=== PATIENT | female | born 1950 | race African-American/Black ===

== ENCOUNTER 2017-03-20 13:16 | Emergency (ER) | payer MEDICARE ==
[~2017-03-20] VITALS: Ht 160 cm; Wt 91.8 kg
[2017-03-20 13:16] VITALS: TEMP 97.8
[~2017-03-20 13:16] MED LIST: ADVAIR 100/28 DISKUS IH; ASPIRIN E.C. 8181 MG PO; CALAN SR240 MG PO; CALCIUM CARBON500 M1 PO; CARISOPRODOL350 MG PO; CIPRO 500MG TA500 MG PO; COLACE 100100 MG/CAP PO; COREG12.5 MG PO; EXCEDRIN MIGRAI1 TAB PO; EXCEDRIN TENSIO1 CAP PO; FORTAMET1000 MG PO; GLUCOTROL XL5 MG/TAB PO; HYDROXYZINE HCL25 MG PO; IBU800 M1 PO; INDOCIN50 MG PO; K-DUR 2020 MEQ PO; KLOR-CON 1010 MEQ PO; LASIX 40MG TABL40 MG PO; LEVEMIR100 U/ML SC; LISINOPRIL/HCTZ1 TA2 PO; LISINOPRIL40 MG PO; LODINE400 MG PO; LORTAB 10/500 51 TAB PO; LORTAB 5/500 501 TAB PO; LORTAB 7.5/5001 TAB PO; LOVASTATIN20 MG PO; MIGRAINE RELIEF PO; MULTIPLE VITAMI1 TAB PO; MVI; NORCO 325 MG-101 TAB PO; NORCO 325 MG-7.1 TAB PO; NORVASC2.5 MG PO; NOVOLOG 100U100 U/M1 SC; PERCOCET 325 MG1 TA2 PO; PRAVACHOL 40MG40 MG PO; PRENATAL1 TA1 PO; PRINIVIL40 MG PO; SLEEP AID25 M1 PO; VALIUM 2MG T2 MG/TAB PO; VERAPAMIL ER240 MG PO; VITAMIN B1225 MCG PO; VITAMIN D31000 IU PO; ZITHROMAX Z PA250 MG PO; ZYLOPRIM 300MG300 MG PO; ZYLOPRIM100 MG PO
[2017-03-20] MEDS ORDERED: K-DUR20 MEQ PO (13:27)
[2017-03-20] MEDS ORDERED: ZOLOFT 25MG25 MG PO (13:28)
[2017-03-20] MEDS ORDERED: HCTZ 25MG TAB25 MG PO (13:29)
[2017-03-20] MEDS ORDERED: GLUCOTROL10 MG PO (13:29)
[2017-03-20 14:06] LABS: BASO % 0.4 % (0.0-2.0); EOS # 0.1 (0.0-0.7); EOS % 0.6 % (0-4.0); GRAN # 5.2 (1.4-6.5); LYMPH % 24.9 % (20.0-51.0); MEAN CELL VOLUME 94 fl (80.0-100.0); MEAN CORPUSCULAR HGB CONC 33 g/dl (33.0-37.0); MEAN PLATELET VOLUME 10.7 fl (7.4-10.4); MONO # 0.7 (0.1-0.6); MONO % 8.5 % (1.7-9.3); PLATELET COUNT 150 K/mm3 (130-400); RED BLOOD COUNT 3.68 M/mm3 (4.10-5.30); REDCELL DISTRIBUTION WIDTH-CV 15.7 % (11.5-14.5)
[2017-03-20 14:07] LABS: HEMATOCRIT 34.4 % (37.0-47.0); HEMOGLOBIN 11.5 g/dl (12.5-16.0); MEAN CORPUSCULAR HEMOGLOBIN 31 pg (27.0-31.0)
[2017-03-20 14:09] LABS: PROTHROMBIN TIME 11.1 SECONDS (9.7-12.8)
[2017-03-20 14:12] LABS: PARTIAL THROMBOPLASTIN TIME 26.9 SECONDS (26.0-37.0)
[2017-03-20 14:28] LABS: ALANINE AMINOTRANSFERASE 34 U/L (9-52); ALBUMIN 4.2 gm/dL (3.5-5.0); ALKALINE PHOSPHATASE 102 U/L (50-136); ANION GAP 9 mmol/L (7-16); AST,SGOT 32 U/L (15-37); BILIRUBIN,TOTAL 0.4 mg/dL (0.0-1.0); BLOOD UREA NITROGEN 27 mg/dL (7-17); CALCIUM 9.5 mg/dL (8.4-10.2); CARBON DIOXIDE 28 mmol/L (22-30); CHLORIDE 102 mmol/L (98-107); CREATININE, serum 1.26 mg/dL (0.52-1.25); GLUCOSE 107 mg/dL (74-106); POTASSIUM 3.5 mmol/L (3.4-5.0); SODIUM 139 mmol/L (137-145); TOTAL PROTEIN 7.4 gm/dL (6.4-8.2)
[2017-03-20 14:41] LABS: TROPONIN-I < 0.012 ng/mL (0.000-0.034)
[2017-03-20 16:39] VITALS: BP 185/91; PULSE 62
== END 2017-03-20 16:55 | disposition home or self-care (01) ==
LOC: COL.ER 13:16
PROVIDERS: Emergency Medicine
DX: R07.89 Other chest pain (principal); I12.9 Hypertensive chronic kidney disease with stage 1 through stage 4 chronic kidney disease, or unspecified chronic kidney disease; E11.22 Type 2 diabetes mellitus with diabetic chronic kidney disease; N18.9 Chronic kidney disease, unspecified; Z87.891 Personal history of nicotine dependence; Z87.442 Personal history of urinary calculi; Z79.82 Long term (current) use of aspirin; Z79.84 Long term (current) use of oral hypoglycemic drugs

== ENCOUNTER → 2017-05-02 | Outpatient (CLI) | payer MEDICARE ==
[~2017-05-02] MED LIST changes: +GLUCOTROL10 MG PO; +HCTZ 25MG TAB25 MG PO; +K-DUR20 MEQ PO; +MULTI VITAMINS1 TAB PO; +NORVASC 10MG10 MG PO; +PRINIVIL10 MG PO; +PROTONIX 40MG T40 MG PO; +VITAMIN B100 CO1 TAB PO; +VITAMIN D31000 I1 PO; -VITAMIN D31000 IU PO; +ZOLOFT 25MG25 MG PO
[2017-05-02 11:52] LABS: BASO % 0.7 % (0.0-2.0); EOS # 0.1 (0.0-0.7); EOS % 1.6 % (0-4.0); GRAN # 3.4 (1.4-6.5); GRAN % 56.4 % (42.2-75.2); LYMPH # 1.9 (1.2-3.4); LYMPH % 31.8 % (20.0-51.0); MEAN CELL VOLUME 93 fl (80.0-100.0); MEAN CORPUSCULAR HGB CONC 33 g/dl (33.0-37.0); MONO # 0.6 (0.1-0.6); MONO % 9.2 % (1.7-9.3); PLATELET COUNT 187 K/mm3 (130-400); RED BLOOD COUNT 3.37 M/mm3 (4.10-5.30); REDCELL DISTRIBUTION WIDTH-CV 15.1 % (11.5-14.5)
[2017-05-02 11:55] LABS: HEMATOCRIT 31.2 % (37.0-47.0); HEMOGLOBIN 10.4 g/dl (12.5-16.0); MEAN CORPUSCULAR HEMOGLOBIN 31 pg (27.0-31.0)
== END ==
LOC: COL.LAB 10:16
PROVIDERS: Physician Assistant
DX: K92.1 Melena (principal); K26.9 Duodenal ulcer, unspecified as acute or chronic, without hemorrhage or perforation; D64.9 Anemia, unspecified; K62.5 Hemorrhage of anus and rectum

== ENCOUNTER 2017-12-11 13:53 | Emergency (ER) | payer MEDICARE ==
[~2017-12-11] VITALS: Ht 160 cm; Wt 89.1 kg
[2017-12-11 13:56] VITALS: BP 123/72
[2017-12-11 14:47] LABS: BASO # 0.1 (0.0-0.2); BASO % 0.8 % (0.0-2.0); EOS # 0.1 (0.0-0.7); EOS % 1.1 % (0-4.0); GRAN # 4.9 (1.4-6.5); GRAN % 65.1 % (42.2-75.2); HEMOGLOBIN 12.8 g/dl (12.5-16.0); LYMPH # 1.8 (1.2-3.4); LYMPH % 23.8 % (20.0-51.0); MEAN CELL VOLUME 89 fl (80.0-100.0); MEAN CORPUSCULAR HEMOGLOBIN 31 pg (27.0-31.0); MEAN CORPUSCULAR HGB CONC 35 g/dl (33.0-37.0); MEAN PLATELET VOLUME 9.8 fl (7.4-10.4); MONO # 0.7 (0.1-0.6); MONO % 8.9 % (1.7-9.3); PLATELET COUNT 211 K/mm3 (130-400); RED BLOOD COUNT 4.11 M/mm3 (4.10-5.30); REDCELL DISTRIBUTION WIDTH-CV 13.8 % (11.5-14.5)
[2017-12-11 14:48] LABS: HEMATOCRIT 36.7 % (37.0-47.0)
[2017-12-11 14:55] LABS: ALANINE AMINOTRANSFERASE 36 U/L (9-52); ALBUMIN 4.4 gm/dL (3.5-5.0); ALKALINE PHOSPHATASE 109 U/L (50-136); ANION GAP 17 mmol/L (7-16); AST,SGOT 34 U/L (15-37); BILIRUBIN,TOTAL 0.5 mg/dL (0.0-1.0); BLOOD UREA NITROGEN 26 mg/dL (7-17); CALCIUM 10.2 mg/dL (8.4-10.2); CARBON DIOXIDE 21 mmol/L (22-30); CHLORIDE 99 mmol/L (98-107); CREATININE, serum 2.32 mg/dL (0.52-1.25); GLUCOSE 112 mg/dL (74-106); POTASSIUM 4.8 mmol/L (3.4-5.0); SODIUM 136 mmol/L (137-145); TOTAL PROTEIN 8.2 gm/dL (6.4-8.2)
[2017-12-11 15:07] LABS: TROPONIN-I < 0.012 ng/mL (0.000-0.034)
[2017-12-11 15:42] VITALS: PULSE 82; TEMP 97
== END 2017-12-11 15:42 | disposition home or self-care (01) ==
LOC: COL.ER 13:53
DX: M79.602 Pain in left arm (principal); E78.5 Hyperlipidemia, unspecified; I10 Essential (primary) hypertension; I25.10 Atherosclerotic heart disease of native coronary artery without angina pectoris; E11.9 Type 2 diabetes mellitus without complications; Z87.442 Personal history of urinary calculi; Z98.890 Other specified postprocedural states; Z87.891 Personal history of nicotine dependence; Z79.84 Long term (current) use of oral hypoglycemic drugs

== ENCOUNTER 2018-03-30 09:14 | Emergency (ER) | payer MEDICARE ==
[~2018-03-30] VITALS: Ht 160 cm; Wt 86.8 kg
[2018-03-30 09:17] VITALS: TEMP 97.9
[2018-03-30] MEDS ORDERED: MAGNESIUM200 MG PO (09:42)
[2018-03-30] MEDS ORDERED: NORCO 325 MG-101 TAB PO (09:42)
[2018-03-30] MEDS ORDERED: ASPIRIN 81M81 MG/TA2 PO (09:42)
[2018-03-30] MEDS ORDERED: DOXYCYCLINE 10100 MG PO (10:15)
[2018-03-30 10:25] VITALS: BP 132/58; PULSE 58
== END 2018-03-30 10:25 | disposition home or self-care (01) ==
LOC: COL.ER 09:14
DX: R21 Rash and other nonspecific skin eruption (principal); E11.9 Type 2 diabetes mellitus without complications; I10 Essential (primary) hypertension; Z87.891 Personal history of nicotine dependence; Z90.710 Acquired absence of both cervix and uterus; Z79.82 Long term (current) use of aspirin; Z79.84 Long term (current) use of oral hypoglycemic drugs
CPT/HCPCS: J1100

== ENCOUNTER 2018-05-01 10:47 | Day surgery (SDC) | payer MEDICARE, MEDICAID ==
[~2018-05-01] VITALS: Ht 160 cm; Wt 88.6 kg
[~2018-05-01 10:47] MED LIST changes: +ASPIRIN 81M81 MG/TA2 PO; +DOXYCYCLINE 10100 MG PO; +MAGNESIUM200 MG PO
--- NOTE | 2018-05-01 10:58 | NUR ---
Patient admitted to room 2 at 1058 and oriented to room. Readied for procedure. Siderails up x2 and call light in reach.
[2018-05-01 11:21] VITALS: BP 150/71; PULSE 71; TEMP 97.5
[2018-05-01] MEDS ORDERED: HCTZ 25MG TAB25 MG PO (12:15)
[2018-05-01] MEDS ORDERED: ZYLOPRIM 300MG300 MG PO (12:15)
[2018-05-01] MEDS ORDERED: ZOLOFT 50MG50 MG PO (12:15)
[2018-05-01] MEDS ORDERED: NORVASC 10MG10 MG PO (12:16)
[2018-05-01] MEDS ORDERED: GLUCOTROL10 MG PO ×2 (12:17)
[2018-05-01] MEDS ORDERED: COREG 25MG25 MG/TAB PO (12:18)
[2018-05-01] MEDS ORDERED: PRAVACHOL 40MG40 MG PO (12:19)
[2018-05-01] MEDS ORDERED: ASPIRIN 81M81 MG/TA2 PO (12:20)
[2018-05-01] MEDS ORDERED: MAGNESIUM250 M1 PO (12:20)
[2018-05-01] MEDS ORDERED: NORCO 325 MG-101 TAB PO (12:21)
[2018-05-01 14:55] VITALS: BP 143/60; PULSE 77
--- NOTE | 2018-05-01 14:55 | NUR ---
Patient returns to room 2 per cart from PACU and is awake and alert. Temp 99.4 and sats 96% on 2L per nasal cannula. IV fluids infusing and denies pain or nausea. Denies pain or nausea. Tolerating po fluids. Spouse in room.
[2018-05-01 15:10] VITALS: BP 145/52; PULSE 76
--- NOTE | 2018-05-01 15:10 | NUR ---
Eating ice cream and drinking water. Sats 96% on 2L per nasal cannula. IV fluids infusing and denies pain or nausea.
[2018-05-01 15:25] VITALS: BP 130/63; PULSE 76
--- NOTE | 2018-05-01 15:25 | NUR ---
Room air sats 94% and continues to sip on water and eat ice cream.
[2018-05-01 15:40] VITALS: BP 127/60; PULSE 75
--- NOTE | 2018-05-01 15:40 | NUR ---
Room air sats 94% and continues to deny pain or nausea.
--- NOTE | 2018-05-01 15:45 | NUR ---
Patient is up and dressing self. Denies nausea and states that her throat is sore but tolerable. Instructed her to take Tylenol or Ibprofen for pain.
--- NOTE | 2018-05-01 15:50 | NUR ---
Assisted up to the bathroom and voids. Tolerates activity well. IV was discontinued.
--- NOTE | 2018-05-01 15:55 | NUR ---
Dismissal instructions signed and patient verbalizes understanding of home cares and follow up as scheduled.
--- NOTE | 2018-05-01 16:00 | NUR ---
Patient dismissed to home driven by spouse per private vehicle and taken to the front door and assisted into vehicle by RN with instructions in hand.
[2018-05-01 16:04] VITALS: BP 143/60; PULSE 77; TEMP 99.2
== END 2018-05-01 16:00 | disposition home or self-care (01) ==
LOC: SDCO 10:47
DX: D14.1 Benign neoplasm of larynx (principal); E11.22 Type 2 diabetes mellitus with diabetic chronic kidney disease; I12.9 Hypertensive chronic kidney disease with stage 1 through stage 4 chronic kidney disease, or unspecified chronic kidney disease; N18.3 Chronic kidney disease, stage 3 (moderate); Z79.84 Long term (current) use of oral hypoglycemic drugs; Z87.891 Personal history of nicotine dependence; Z79.899 Other long term (current) drug therapy; Z79.82 Long term (current) use of aspirin; I73.9 Peripheral vascular disease, unspecified; M1A.9XX0 Chronic gout, unspecified, without tophus (tophi); Z79.891 Long term (current) use of opiate analgesic; E03.9 Hypothyroidism, unspecified; I42.0 Dilated cardiomyopathy; I38 Endocarditis, valve unspecified; Z90.710 Acquired absence of both cervix and uterus; I25.10 Atherosclerotic heart disease of native coronary artery without angina pectoris; Z95.5 Presence of coronary angioplasty implant and graft; I27.20 Pulmonary hypertension, unspecified; G89.29 Other chronic pain; M25.50 Pain in unspecified joint; D64.9 Anemia, unspecified; I70.1 Atherosclerosis of renal artery; K21.9 Gastro-esophageal reflux disease without esophagitis; F51.04 Psychophysiologic insomnia; F33.9 Major depressive disorder, recurrent, unspecified; E55.9 Vitamin D deficiency, unspecified; E53.9 Vitamin B deficiency, unspecified; M11.20 Other chondrocalcinosis, unspecified site
CPT/HCPCS: J0171; J1100; J2310; J2405; J2704; J3010

== ENCOUNTER 2018-06-01 19:47 | Emergency (ER) | payer MEDICAID ==
[~2018-06-01] VITALS: Ht 160 cm; Wt 88.6 kg
[~2018-06-01 19:47] MED LIST changes: +COREG 25MG25 MG/TAB PO; +MAGNESIUM250 M1 PO; +ZOLOFT 50MG50 MG PO
[2018-06-01] MEDS ORDERED: JANUVIA50 MG PO (20:21)
[2018-06-01 20:53] LABS: MEAN CELL VOLUME 92 fl (80.0-100.0); MEAN CORPUSCULAR HEMOGLOBIN 31 pg (27.0-31.0); MEAN CORPUSCULAR HGB CONC 34 g/dl (33.0-37.0); MEAN PLATELET VOLUME 10.6 fl (7.4-10.4); PLATELET COUNT 187 K/mm3 (130-400); RED BLOOD COUNT 3.52 M/mm3 (4.10-5.30); REDCELL DISTRIBUTION WIDTH-CV 14.2 % (11.5-14.5)
[2018-06-01 21:04] LABS: ALBUMIN 4.1 gm/dL (3.5-5.0); BILIRUBIN,TOTAL 0.5 mg/dL (0.0-1.0); C-REACTIVE PROTEIN 4.9 mg/dL (0.0-0.9); CALCIUM 9.5 mg/dL (8.4-10.2); CREATININE, serum 1.56 (0.52-1.25); POTASSIUM 3.6 mmol/L (3.4-5.0); TOTAL PROTEIN 7.6 gm/dL (6.4-8.2)
[2018-06-01 21:05] LABS: HEMATOCRIT 32.3 % (37.0-47.0)
[2018-06-01 21:21] LABS: LYMPHOCYTE 13 % (20.0-51.0); NEUTROPHILS 78 % (42.0-75.2); PLATELET ESTIMATE NORMAL (NORMAL)
[2018-06-01 21:22] LABS: HELMET CELLS 1+; STOMATOCYTE 1+; TARGET CELLS 1+
[2018-06-01 21:30] LABS: COLLECTION METHOD CLEAN CATCH
[2018-06-01 21:38] LABS: PH 5 (5-8); URINE APPEARANCE Clear; URINE BACTERIA None Seen /hpf; URINE BILIRUBIN Negative (NEGATIVE); URINE BLOOD Negative (NEGATIVE); URINE COLOR Yellow; URINE GLUCOSE Negative (NEGATIVE); URINE KETONE Negative (NEGATIVE); URINE LEUKOCYTE ESTERASE 1+ (NEGATIVE); URINE NITRATE Negative (NEGATIVE); URINE PROTEIN(semi-quant) Negative (NEGATIVE); URINE RBC 0-2 /hpf; URINE UROBILINOGEN Negative (NEGATIVE)
[2018-06-01] MEDS ORDERED: CEFTIN500 MG PO (21:53)
[2018-06-01 22:10] VITALS: BP 137/87; PULSE 80; TEMP 98.4
== END 2018-06-01 22:10 | disposition home or self-care (01) ==
LOC: COL.ER 19:47
PROVIDERS: Emergency Medicine
DX: N39.0 Urinary tract infection, site not specified (principal); M25.551 Pain in right hip; F32.9 Major depressive disorder, single episode, unspecified; E11.9 Type 2 diabetes mellitus without complications; E78.5 Hyperlipidemia, unspecified; I10 Essential (primary) hypertension; Z87.442 Personal history of urinary calculi; Z79.82 Long term (current) use of aspirin; Z79.84 Long term (current) use of oral hypoglycemic drugs

== ENCOUNTER 2018-06-03 16:45 | Inpatient (IN) | payer MEDICARE, MEDICAID ==
[~2018-06-03] VITALS: Ht 160 cm; Wt 80.6 kg
[~2018-06-03 16:45] MED LIST changes: +CEFTIN500 MG PO; +JANUVIA50 MG PO
[2018-06-03 17:36] LABS: BASO % 0.3 % (0.0-2.0); EOS # 0.1 (0.0-0.7); EOS % 0.5 % (0-4.0); GRAN # 11.7 (1.4-6.5); GRAN % 77.4 % (42.2-75.2); HEMOGLOBIN 10.5 g/dl (12.5-16.0); LYMPH # 1.6 (1.2-3.4); LYMPH % 10.4 % (20.0-51.0); MEAN CELL VOLUME 91 fl (80.0-100.0); MEAN CORPUSCULAR HEMOGLOBIN 31 pg (27.0-31.0); MEAN CORPUSCULAR HGB CONC 34 g/dl (33.0-37.0); MEAN PLATELET VOLUME 10.9 fl (7.4-10.4); MONO # 1.7 (0.1-0.6); PLATELET COUNT 171 K/mm3 (130-400); RED BLOOD COUNT 3.43 M/mm3 (4.10-5.30)
[2018-06-03 17:38] LABS: HEMATOCRIT 31.3 % (37.0-47.0)
[2018-06-03 17:43] LABS: ALANINE AMINOTRANSFERASE < 6 U/L (9-52); ALBUMIN 3.9 gm/dL (3.5-5.0); ALKALINE PHOSPHATASE 106 U/L (50-136); ANION GAP 8 mmol/L (7-16); AST,SGOT 19 U/L (15-37); BILIRUBIN,TOTAL 0.7 mg/dL (0.0-1.0); BLOOD UREA NITROGEN 24 mg/dL (7-17); CALCIUM 9.6 mg/dL (8.4-10.2); CARBON DIOXIDE 27 mmol/L (22-30); CHLORIDE 100 mmol/L (98-107); CREATININE, serum 1.37 (0.52-1.25); GLUCOSE 167 mg/dL (74-106); POTASSIUM 3.4 mmol/L (3.4-5.0); SODIUM 135 mmol/L (137-145); TOTAL PROTEIN 7.4 gm/dL (6.4-8.2)
[2018-06-03 17:53] LABS: C-REACTIVE PROTEIN 17.3 mg/dL (0.0-0.9); TROPONIN-I < 0.012 ng/mL (0.000-0.035)
[2018-06-03 18:42] LABS: COLLECTION METHOD CLEAN CATCH
[2018-06-03 18:52] LABS: PH 6 (5-8); URINE APPEARANCE Clear; URINE BACTERIA None Seen /hpf; URINE BILIRUBIN Negative (NEGATIVE); URINE BLOOD Negative (NEGATIVE); URINE COLOR Yellow; URINE GLUCOSE Negative (NEGATIVE); URINE KETONE Negative (NEGATIVE); URINE LEUKOCYTE ESTERASE 1+ (NEGATIVE); URINE NITRATE Negative (NEGATIVE); URINE PROTEIN(semi-quant) Negative (NEGATIVE); URINE UROBILINOGEN Negative (NEGATIVE)
--- NOTE | 2018-06-03 23:22 | NUR ---
PT ARRIVED VIA WHEELCHAIR FROM THE ER. PT A/O X4, AND SON ACOMMPANIED PT. PT STILL HAD SOME PAIN IN LOWER ABDOMEN AND LOWER BACK, GAVE DILAUDID FOR PAIN. PAIN RATED AT 8/10 THAT IS STABBING. ALSO, PAIN GIVEN WARM BLANKET AND SANDWICH BOX WITH ICE WATER, NO FURTHER NEEDS AT THIS TIME, CALL LIGHT WITHIN REACH.
[2018-06-04] VITALS (7 sets, daily range): BP systolic 113–136; BP diastolic 41–60; PULSE 67–71; TEMP 98.3–99.4
--- NOTE | 2018-06-04 00:45 | NUR ---
PT'S IV IN LEFT AC INFILTRATED WOULD NOT FLUSH, REMOVED AND CATHETER INTACT, APPLIED PRESSURE TILL BLEEDING STOPPED, AND PROTECTIVE DRSG APPLIED. STARTED 20G IV IN RIGHT FOREARM, X2 ATTEMPTS, WITH NO DIFFICULTIES, AND PT TOLERATED WELL. CALL LIGHT WITHIN REACH.
--- NOTE | 2018-06-04 02:12 | NUR ---
CALLED KURT CALLEJAS IN REFERENCE TO PT WANTING SOMETHING TO HELP HER SLEEP. RECEIVED ORDER FOR MELATONIN 6MG.
--- NOTE | 2018-06-04 02:53 | NUR ---
PT GIVEN MELATONIN TO ASSIST WITH SLEEPING. PT IN BED WITH HOB ELEVATED TO 30 DEGREE ANGLE. PT WATCHING TV AND DENIES PAIN AT THIS TIME. PT ADVISED THAT SHE HAS A LITTLE PAIN WHEN SHE MOVES, BUT IS MUCH BETTER NOW. CALL LIGHT WITHIN REACH.
[2018-06-04 06:29] LABS: MEAN CELL VOLUME 92 fl (80.0-100.0); MEAN CORPUSCULAR HGB CONC 33 g/dl (33.0-37.0); MEAN PLATELET VOLUME 10.7 fl (7.4-10.4); PLATELET COUNT 165 K/mm3 (130-400); RED BLOOD COUNT 3.21 M/mm3 (4.10-5.30); REDCELL DISTRIBUTION WIDTH-CV 13.9 % (11.5-14.5)
[2018-06-04 06:30] LABS: HEMATOCRIT 29.4 % (37.0-47.0); HEMOGLOBIN 9.8 g/dl (12.5-16.0); MEAN CORPUSCULAR HEMOGLOBIN 31 pg (27.0-31.0)
[2018-06-04 06:44] LABS: CALCIUM 9.3 mg/dL (8.4-10.2); CREATININE, serum 1.35 (0.52-1.25); POTASSIUM 3.3 mmol/L (3.4-5.0)
--- NOTE | 2018-06-04 07:36 | NUR ---
PT STILL HAVING BACK PAIN. GAVE PAIN MEDICATION AND A ICE PACK PER REQUEST FROM PT. PT PLEASANT AND COOPERATIVE, NO FURTHER NEEDS, CARE TRANSFERED OVER TO [facility].
[2018-06-04 08:26] LABS: BAND 9 % (0-10); EOSINOPHIL 1 % (0-4); LYMPHOCYTE 9 % (20.0-51.0); NEUTROPHILS 71 % (42.0-75.2)
[2018-06-04 08:32] LABS: OVALOCYTES 1+
[2018-06-04 08:33] LABS: PLATELET ESTIMATE NORMAL (NORMAL)
--- NOTE | 2018-06-04 08:47 | NUR ---
Pt is awake and A/Ox4, sitting up in bed watching TV. She reports her lower back pain has decreased to a 5/10, post dilaudid administration at approx 0630. Pt denied needing additional pain meds at this time. She denies abdominal pain. Denies N/V. IVF are infusing into left AC without difficulty. Pt denies any other needs, will monitor.
--- NOTE | 2018-06-04 10:08 | NUR ---
ANABELL and ANABELL student attended clinical rounds and followed up with patient and patient's to discuss discharge plan. Patient lives with her , Azaila, in [place]. Patient receives primary care from the [facility] in and receives her medications from [facility] in . Patient has recently started using a cane and also has a walker available at home if needed. Patient reports independence with ADLs prior to hospitalization. Patient states that she has a DPOA-HC completed and it is at home/[facility]. ANABELL student to request copy from [facility]. ANABELL student discussed possibility of outpatient PT vs HH PT, Patient and were open to both as long as insurance covers. Patient states that she has ANABELL Angel to consult Financial CounselorAminata. ANABELL to continue to follow for PT/OT recommendations.
--- NOTE | 2018-06-04 11:55 | NUR ---
First visit from the nutritional health coach. prayed with patient. No other needs right now.
--- NOTE | 2018-06-04 15:00 | NUR ---
Pt up ambulating in hallways with PT.
--- NOTE | 2018-06-04 20:00 | NUR ---
Completed medication administration and assessment; PT tolerated all cares well; PT reported 7/10 pain using the numeric pain scale to lower back and lower ABD with movement; PT A&Ox4, LCTA, HRRR, BS active x4, PT AMB to toilet with SBA and walker; LAC IV in place flushing well INT for intermittent ABX and medication use; No further assessed or verbalized concerns at time of exit; PT assisted to comfortable position in bed with call light and personal items within reach; Will continue to monitor. CDA
[2018-06-05 04:00] VITALS: BP 122/56; PULSE 71; TEMP 98.6
--- NOTE | 2018-06-05 04:40 | NUR ---
PT resting well throughout night; verbal complaints at time of rounds. CDA
[2018-06-05 06:44] LABS: BASO % 0.2 % (0.0-2.0); EOS # 0.1 (0.0-0.7); EOS % 0.7 % (0-4.0); GRAN % 79.5 % (42.2-75.2); LYMPH # 1.2 (1.2-3.4); LYMPH % 9.2 % (20.0-51.0); MEAN CELL VOLUME 92 fl (80.0-100.0); MEAN CORPUSCULAR HGB CONC 34 g/dl (33.0-37.0); MEAN PLATELET VOLUME 10.8 fl (7.4-10.4); MONO # 1.3 (0.1-0.6); MONO % 9.9 % (1.7-9.3); PLATELET COUNT 169 K/mm3 (130-400); RED BLOOD COUNT 2.91 M/mm3 (4.10-5.30); REDCELL DISTRIBUTION WIDTH-CV 14.2 % (11.5-14.5)
[2018-06-05 06:47] LABS: HEMATOCRIT 26.9 % (37.0-47.0); HEMOGLOBIN 9.1 g/dl (12.5-16.0); MEAN CORPUSCULAR HEMOGLOBIN 31 pg (27.0-31.0)
[2018-06-05 06:52] LABS: CALCIUM 8.9 mg/dL (8.4-10.2); CREATININE, serum 1.33 (0.52-1.25); POTASSIUM 3.7 mmol/L (3.4-5.0)
--- NOTE | 2018-06-05 07:15 | NUR ---
Report given to TANISHA Hyatt; No significant changes or concerns during shift change. CDA
[2018-06-05 07:29] VITALS: BP 125/51; PULSE 68; TEMP 98.8
--- NOTE | 2018-06-05 07:45 | NUR ---
Assessment complete. Pt is AXO X3, states she has pain in her lower back rated at an 8/10. Breathing is even and unlabored on room air. Tele on. RH INT flushes easily, remains free of complications, and is CDI. Pt is sitting up in the bed eating her breakfast at this time and she denies further needs. Call light within reach, will continue to monitor.
[2018-06-05 11:06] VITALS: BP 119/54; PULSE 65; TEMP 98.5
[2018-06-05 17:20] VITALS: BP 131/47; PULSE 71; TEMP 99.3
[2018-06-05 19:36] VITALS: BP 121/57; PULSE 72; TEMP 98.8
--- NOTE | 2018-06-05 21:45 | NUR ---
Completed assessment and medication administration; PT tolerated all cares well; PT continues to report pain to LBP and LLQ ABD intermittent with some decrease in numeric pain with PO pain medication; PT A&Ox4, BS active x4, LCTA, HRRR, ACHS readings stable, new IV placed to LW on 06/05/18 d/t leakage from prior RAC site; NO further assessed or verbalized concerns or pain at time of exit; PT assisted to comfortable position in bed with call light and personal items within reach; Will continue to monitor. One patch removed from low back. CDA
[2018-06-06] VITALS (7 sets, daily range): BP systolic 120–139; BP diastolic 48–60; PULSE 56–70; TEMP 97.7–98.6
--- NOTE | 2018-06-06 03:52 | NUR ---
PT resting well intermittently in bed; PRN pain medication administered to assist with reported LBP; No further acute complaints or concerns at time of rounds; Will continue to monitor. CDA
[2018-06-06 06:20] LABS: BASO % 0.3 % (0.0-2.0); EOS # 0.1 (0.0-0.7); EOS % 1.2 % (0-4.0); GRAN # 9.4 (1.4-6.5); GRAN % 81.1 % (42.2-75.2); LYMPH % 8.8 % (20.0-51.0); MEAN CELL VOLUME 92 fl (80.0-100.0); MEAN CORPUSCULAR HGB CONC 33 g/dl (33.0-37.0); MEAN PLATELET VOLUME 10.8 fl (7.4-10.4); MONO % 8.2 % (1.7-9.3); PLATELET COUNT 181 K/mm3 (130-400); RED BLOOD COUNT 2.95 M/mm3 (4.10-5.30); REDCELL DISTRIBUTION WIDTH-CV 14.2 % (11.5-14.5)
[2018-06-06 06:23] LABS: HEMATOCRIT 27.2 % (37.0-47.0); MEAN CORPUSCULAR HEMOGLOBIN 31 pg (27.0-31.0)
[2018-06-06 06:38] LABS: CALCIUM 9.2 mg/dL (8.4-10.2); CREATININE, serum 1.28 (0.52-1.25); POTASSIUM 3.5 mmol/L (3.4-5.0)
[2018-06-06 06:49] LABS: C-REACTIVE PROTEIN 19.3 mg/dL (0.0-0.9)
--- NOTE | 2018-06-06 07:11 | NUR ---
Report given to TANISHA Hyatt; No significant changes or concerns during shift report. CDA
--- NOTE | 2018-06-06 07:30 | NUR ---
Assessment complete. Pt is AXO X3, states she has pain in her lower back. Breathing is even and unlabored on room air. Tele on. LW INT flushes easily, remains free of complications, and is CDI. Pt is sitting up in the bed eating her breakfast at this time and she denies further needs. Call light within reach, will continue to monitor.
--- NOTE | 2018-06-06 11:25 | NUR ---
SW and SW student attended clinical rounding. Patient is not dc home today due to uncontrolled pain. PT and OT recommending OP therapy. Will continue to follow.
--- NOTE | 2018-06-06 18:38 | NUR ---
Pt has been resting on and off throughout the day. She has had constant pain in her lower back. Pain medication administered on APR. has been at the bedside; all questions answered. Pt is sitting up in the bed watching TV at this time and she denies further needs. Call light within reach. Report given to TANISHA No.
--- NOTE | 2018-06-06 23:23 | NUR ---
Completed assessment and medication administration; PT tolerated all cares well; No reported or assessed pain or discomfort at time of assessment; PT A&Ox4, BS active x4, AMB SBA, HRRR, LCTA, left wrist INT in place; No further assessed pain or concerns at time of exit; PT assisted to a comfortable position in bed with call light and personal items within bed; Will continue to monitor. CDA
[2018-06-07 04:00] VITALS: BP 136/61; PULSE 65; TEMP 98.1
[2018-06-07 07:05] LABS: BASO % 0.1 % (0.0-2.0); GRAN # 9.5 (1.4-6.5); GRAN % 87.3 % (42.2-75.2); LYMPH # 0.7 (1.2-3.4); LYMPH % 6.5 % (20.0-51.0); MEAN CELL VOLUME 91 fl (80.0-100.0); MEAN CORPUSCULAR HGB CONC 34 g/dl (33.0-37.0); MONO # 0.6 (0.1-0.6); MONO % 5.5 % (1.7-9.3); PLATELET COUNT 207 K/mm3 (130-400); RED BLOOD COUNT 3.15 M/mm3 (4.10-5.30); REDCELL DISTRIBUTION WIDTH-CV 14.1 % (11.5-14.5)
--- NOTE | 2018-06-07 07:09 | NUR ---
Report given to TANISHA Saha; No significant changes or concerns at time of shift report. CDA
[2018-06-07 07:14] LABS: HEMATOCRIT 28.7 % (37.0-47.0); HEMOGLOBIN 9.7 g/dl (12.5-16.0); MEAN CORPUSCULAR HEMOGLOBIN 31 pg (27.0-31.0)
[2018-06-07 07:22] LABS: CALCIUM 9.7 mg/dL (8.4-10.2); CREATININE, serum 1.31 (0.52-1.25)
[2018-06-07 08:17] VITALS: BP 135/82; PULSE 69; TEMP 97.6
--- NOTE | 2018-06-07 09:56 | NUR ---
Pt is awake and A/Ox4, sitting up in bed. She states she does not have any pain at this time. Saline lock to left wrist is free of complications. Pt is up independently with walker, steady gait noted. Pt denies any other needs from staff, will monitor.
[2018-06-07] MEDS ORDERED: PREDNISONE10 MG PO (10:08)
--- NOTE | 2018-06-07 10:11 | NUR ---
ANABELL and ANABELL student attended clinical rounding and met with patient. Patient is confused about how her humana lapsed. ANABELL told her that we would call finance and have them come up and talk to her before she goes. Patient would like to go to [facility] in [place] for OP PT. ANABELL informed unit assistant. ANABELL called yun with finance, will follow up. Patient is dc home today with and outpatient PT.
[2018-06-07] MEDS ORDERED: PEPCID 20MG TAB20 MG PO (10:19)
--- NOTE | 2018-06-07 11:44 | NUR ---
Pt was discharged home from hospital. All discharge instructions and paperwork was reviewed with pt and , expressed understanding and had no questions. New prescriptions sent to pharm. Saline lock removed by Eve Reddy student. Pt was escorted out of facility by staff.
== END 2018-06-07 11:45 | disposition home or self-care (01) | DRG 546 ==
LOC: COL.ER 16:45 → MEDICAL 19:23
PROVIDERS: Emergency Medicine; Nurse Practitioner; Nurse Practitioner Family; Physician Assistant; ADMIT Hospitalist
DX: M35.3 Polymyalgia rheumatica (principal); N17.9 Acute kidney failure, unspecified; R65.10 Systemic inflammatory response syndrome (SIRS) of non-infectious origin without acute organ dysfunction; M87.351 Other secondary osteonecrosis, right femur; M87.352 Other secondary osteonecrosis, left femur; M48.061 Spinal stenosis, lumbar region without neurogenic claudication; I12.9 Hypertensive chronic kidney disease with stage 1 through stage 4 chronic kidney disease, or unspecified chronic kidney disease; E11.22 Type 2 diabetes mellitus with diabetic chronic kidney disease; N18.9 Chronic kidney disease, unspecified; E78.5 Hyperlipidemia, unspecified; K86.89 Other specified diseases of pancreas; I25.10 Atherosclerotic heart disease of native coronary artery without angina pectoris; W18.30XA Fall on same level, unspecified, initial encounter; Z95.5 Presence of coronary angioplasty implant and graft; Z87.891 Personal history of nicotine dependence; N20.0 Calculus of kidney
CPT/HCPCS: OP; 99232-AI; 99233-AI; G0378; J1170; J1644; J1815; J2405; J2543; J3010; J3370; J7030; J7050; J7512; Q9967

== ENCOUNTER 2018-06-30 09:00 | Emergency (ER) | payer MEDICARE, MEDICAID ==
[~2018-06-30] VITALS: Ht 160 cm; Wt 79.1 kg
[~2018-06-30 09:00] MED LIST changes: +PEPCID 20MG TAB20 MG PO; +PREDNISONE10 MG PO
[2018-06-30 09:07] VITALS: TEMP 97.7
[2018-06-30 09:35] LABS: MEAN CELL VOLUME 86 fl (80.0-100.0); MEAN CORPUSCULAR HGB CONC 35 g/dl (33.0-37.0); PLATELET COUNT 50 K/mm3 (130-400); RED BLOOD COUNT 3.22 M/mm3 (4.10-5.30); REDCELL DISTRIBUTION WIDTH-CV 16.7 % (11.5-14.5)
[2018-06-30 09:36] LABS: HEMATOCRIT 27.8 % (37.0-47.0); HEMOGLOBIN 9.7 g/dl (12.5-16.0); MEAN CORPUSCULAR HEMOGLOBIN 30 pg (27.0-31.0)
[2018-06-30 09:46] LABS: ALBUMIN 3.3 gm/dL (3.5-5.0); BILIRUBIN,TOTAL 1.1 mg/dL (0.0-1.0); CALCIUM 9.2 mg/dL (8.4-10.2); CREATININE, serum 1.95 (0.52-1.25); POTASSIUM 4.1 mmol/L (3.4-5.0); TOTAL PROTEIN 6.9 gm/dL (6.4-8.2)
[2018-06-30 10:00] LABS: PROLACTIN 49.8 ng/mL (3.0-18.6)
[2018-06-30 10:10] LABS: COLLECTION METHOD CLEAN CATCH
[2018-06-30 10:15] LABS: THYROID STIMULATING HORMONE 1.19 uIU/mL (0.465-4.680)
[2018-06-30 10:22] LABS: ANISOCYTOSIS 1+; BAND 11 % (0-10); LYMPHOCYTE 6 % (20.0-51.0); NEUTROPHILS 79 % (42.0-75.2); PLATELET ESTIMATE DECREASED (NORMAL)
[2018-06-30 10:27] LABS: PH 6 (5-8); SQUAMOUS EPITHELIAL 0-2 /hpf; URINE APPEARANCE Cloudy; URINE BACTERIA Rare /hpf; URINE BILIRUBIN Negative (NEGATIVE); URINE BLOOD 2+ (NEGATIVE); URINE COLOR Yellow; URINE GLUCOSE Negative (NEGATIVE); URINE KETONE Negative (NEGATIVE); URINE LEUKOCYTE ESTERASE 3+ (NEGATIVE); URINE NITRATE Negative (NEGATIVE); URINE PROTEIN(semi-quant) 1+ (NEGATIVE); URINE UROBILINOGEN Negative (NEGATIVE)
[2018-06-30] MEDS ORDERED: MACRODANTIN100 PO (10:35)
[2018-06-30 11:21] VITALS: BP 135/76; PULSE 76
== END 2018-06-30 11:21 | disposition home or self-care (01) ==
LOC: COL.ER 09:00
PROVIDERS: Family Medicine
DX: N39.0 Urinary tract infection, site not specified (principal); G47.30 Sleep apnea, unspecified; I10 Essential (primary) hypertension; I25.10 Atherosclerotic heart disease of native coronary artery without angina pectoris; Z79.84 Long term (current) use of oral hypoglycemic drugs
CPT/HCPCS: A4216; J0696; J2405

== ENCOUNTER 2019-11-11 06:28 | Day surgery (SDC) | payer MEDICARE ==
[~2019-11-11] VITALS: Ht 160 cm; Wt 94.0 kg
[2019-11-11] VITALS (8 sets, daily range): BP systolic 146–168; BP diastolic 62–82; PULSE 62–68; TEMP 97.6–98.7
[~2019-11-11 06:28] MED LIST changes: +MACRODANTIN100 PO
[2019-11-11] MEDS ORDERED: PREDNISONE 5MG5 MG PO (07:07)
[2019-11-11] MEDS ORDERED: CARDIZEM120 MG PO (07:53)
[2019-11-11] MEDS ORDERED: PLAQUENIL 200M200 MG PO (07:58)
[2019-11-11] MEDS ORDERED: TYLENOL 500MG500 MG PO (08:00)
== END 2019-11-11 16:03 | disposition home or self-care (01) ==
LOC: SDCO 06:28 → JCC 12:51 → SDCO 16:03
DX: M75.122 Complete rotator cuff tear or rupture of left shoulder, not specified as traumatic (principal); M75.42 Impingement syndrome of left shoulder; S46.192A Other injury of muscle, fascia and tendon of long head of biceps, left arm, initial encounter; M10.9 Gout, unspecified; M75.02 Adhesive capsulitis of left shoulder; N39.0 Urinary tract infection, site not specified; E78.00 Pure hypercholesterolemia, unspecified; I13.10 Hypertensive heart and chronic kidney disease without heart failure, with stage 1 through stage 4 chronic kidney disease, or unspecified chronic kidney disease; E11.22 Type 2 diabetes mellitus with diabetic chronic kidney disease; N18.9 Chronic kidney disease, unspecified; E11.42 Type 2 diabetes mellitus with diabetic polyneuropathy; D63.1 Anemia in chronic kidney disease; I25.10 Atherosclerotic heart disease of native coronary artery without angina pectoris; F32.9 Major depressive disorder, single episode, unspecified; I70.1 Atherosclerosis of renal artery; I27.20 Pulmonary hypertension, unspecified; M66.852 Spontaneous rupture of other tendons, left thigh; F17.210 Nicotine dependence, cigarettes, uncomplicated; M35.3 Polymyalgia rheumatica; E78.5 Hyperlipidemia, unspecified; G89.29 Other chronic pain; Z90.710 Acquired absence of both cervix and uterus; Z80.9 Family history of malignant neoplasm, unspecified; Z88.8 Allergy status to other drugs, medicaments and biological substances; Z20.828 Contact with and (suspected) exposure to other viral communicable diseases; Z79.82 Long term (current) use of aspirin; Z79.899 Other long term (current) drug therapy; Z79.84 Long term (current) use of oral hypoglycemic drugs
CPT/HCPCS: OP; A4619; C1713; J0171; J0330; J0690; J2250; J2405; J2704; J3010

== ENCOUNTER 2020-03-06 10:29 | Emergency (ER) | payer MEDICARE ==
[~2020-03-06] VITALS: Ht 160 cm; Wt 85.0 kg
[~2020-03-06 10:29] MED LIST changes: +CARDIZEM120 MG PO; +PLAQUENIL 200M200 MG PO; +PREDNISONE 5MG5 MG PO; +TYLENOL 500MG500 MG PO
[2020-03-06 11:36] LABS: ALANINE AMINOTRANSFERASE 33 U/L (4-34); ALBUMIN 3.6 gm/dL (3.5-5.0); ALKALINE PHOSPHATASE 79 U/L (50-136); ANION GAP 8 mmol/L (7-16); AST,SGOT 39 U/L (15-37); BILIRUBIN,TOTAL 0.5 mg/dL (0.0-1.0); BLOOD UREA NITROGEN 48 mg/dL (7-17); CALCIUM 9.1 mg/dL (8.4-10.2); CARBON DIOXIDE 23 mmol/L (22-30); CHLORIDE 104 mmol/L (98-107); CREATININE, serum 2.43 (0.52-1.25); GLUCOSE 144 mg/dL (74-106); POTASSIUM 4.1 mmol/L (3.4-5.0); SODIUM 134 mmol/L (137-145); TOTAL PROTEIN 6.7 gm/dL (6.4-8.2)
[2020-03-06 11:50] LABS: TROPONIN-I < 0.012 ng/mL (0.000-0.035)
[2020-03-06 13:03] LABS: BASO % 0.4 % (0.0-2.0); GRAN % 76.9 % (42.2-75.2); HEMOGLOBIN 10.1 g/dl (12.5-16.0); LYMPH # 0.6 (1.2-3.4); LYMPH % 11.9 % (20.0-51.0); MEAN CELL VOLUME 97 fl (80.0-100.0); MEAN CORPUSCULAR HEMOGLOBIN 32 pg (27.0-31.0); MEAN CORPUSCULAR HGB CONC 33 g/dl (33.0-37.0); MEAN PLATELET VOLUME 12.2 fl (7.4-10.4); MONO # 0.5 (0.1-0.6); PLATELET COUNT 99 K/mm3 (130-400); RED BLOOD COUNT 3.19 M/mm3 (4.10-5.30); REDCELL DISTRIBUTION WIDTH-CV 16.3 % (11.5-14.5)
[2020-03-06 13:13] LABS: HEMATOCRIT 30.9 % (37.0-47.0)
[2020-03-06 14:13] LABS: COLLECTION METHOD CLEAN CATCH
[2020-03-06 14:29] LABS: MUCOUS Present /lpf; PH 6 (5-8); URINE APPEARANCE Cloudy; URINE BACTERIA Rare /hpf; URINE BILIRUBIN Negative (NEGATIVE); URINE BLOOD Negative (NEGATIVE); URINE COLOR Yellow; URINE GLUCOSE Negative (NEGATIVE); URINE KETONE Negative (NEGATIVE); URINE LEUKOCYTE ESTERASE 3+ (NEGATIVE); URINE NITRATE Positive (NEGATIVE); URINE PROTEIN(semi-quant) Negative (NEGATIVE); URINE UROBILINOGEN Negative (NEGATIVE)
[2020-03-06] MEDS ORDERED: CEFTIN500 MG PO (14:37)
[2020-03-06 15:01] VITALS: BP 148/64; PULSE 62; TEMP 97.8
== END 2020-03-06 15:03 | disposition home or self-care (01) ==
LOC: COL.ER 10:29
PROVIDERS: Physician Assistant
DX: R42 Dizziness and giddiness (principal); E86.0 Dehydration; N39.0 Urinary tract infection, site not specified; I25.10 Atherosclerotic heart disease of native coronary artery without angina pectoris; I10 Essential (primary) hypertension; E11.9 Type 2 diabetes mellitus without complications; E78.5 Hyperlipidemia, unspecified; N18.9 Chronic kidney disease, unspecified; Z87.891 Personal history of nicotine dependence; Z79.84 Long term (current) use of oral hypoglycemic drugs; Z79.52 Long term (current) use of systemic steroids
CPT/HCPCS: J7030

== ENCOUNTER 2020-03-11 10:41 | Inpatient (IN) | payer MEDICARE ==
[~2020-03-11] VITALS: Ht 160 cm; Wt 83.4 kg
[~2020-03-11 10:41] MED LIST changes: +CARDIZEM CD 12120 MG PO; -CARDIZEM120 MG PO
[2020-03-11 11:36] LABS: HEMOGLOBIN 10.2 g/dl (12.5-16.0); MEAN CELL VOLUME 95 fl (80.0-100.0); MEAN CORPUSCULAR HEMOGLOBIN 32 pg (27.0-31.0); MEAN CORPUSCULAR HGB CONC 33 g/dl (33.0-37.0); MEAN PLATELET VOLUME 11.7 fl (7.4-10.4); PLATELET COUNT 122 K/mm3 (130-400); RED BLOOD COUNT 3.22 M/mm3 (4.10-5.30); REDCELL DISTRIBUTION WIDTH-CV 15.9 % (11.5-14.5)
[2020-03-11 11:37] LABS: HEMATOCRIT 30.5 % (37.0-47.0)
[2020-03-11 11:44] LABS: ALANINE AMINOTRANSFERASE 19 U/L (4-34); ALBUMIN 3.7 gm/dL (3.5-5.0); ALKALINE PHOSPHATASE 86 U/L (50-136); ANION GAP 8 mmol/L (7-16); AST,SGOT 44 U/L (15-37); BILIRUBIN,TOTAL 0.7 mg/dL (0.0-1.0); BLOOD UREA NITROGEN 35 mg/dL (7-17); CALCIUM 9.3 mg/dL (8.4-10.2); CARBON DIOXIDE 24 mmol/L (22-30); CHLORIDE 102 mmol/L (98-107); CREATININE, serum 2.34 (0.52-1.25); GLUCOSE 111 mg/dL (74-106); POTASSIUM 4.4 mmol/L (3.4-5.0); SODIUM 134 mmol/L (137-145); TOTAL PROTEIN 7.3 gm/dL (6.4-8.2)
[2020-03-11 11:54] LABS: TROPONIN-I < 0.012 ng/mL (0.000-0.035)
[2020-03-11 13:10] LABS: BAND 10 % (0-10); LYMPHOCYTE 16 % (20.0-51.0); NEUTROPHILS 64 % (42.0-75.2); PLATELET ESTIMATE DECREASED (NORMAL)
[2020-03-11 13:25] LABS: COLLECTION METHOD CLEAN CATCH
[2020-03-11 13:38] LABS: MUCOUS Present /lpf; PH 5 (5-8); URINE APPEARANCE Hazy; URINE BACTERIA Rare /hpf; URINE BILIRUBIN Negative (NEGATIVE); URINE BLOOD Negative (NEGATIVE); URINE COLOR Amber; URINE GLUCOSE Negative (NEGATIVE); URINE KETONE Trace (NEGATIVE); URINE LEUKOCYTE ESTERASE Trace (NEGATIVE); URINE NITRATE Negative (NEGATIVE); URINE PROTEIN(semi-quant) 1+ (NEGATIVE); URINE RBC 0-2 /hpf; URINE UROBILINOGEN Negative (NEGATIVE)
[2020-03-11 13:40] LABS: C-REACTIVE PROTEIN 22.2 mg/dL (0.0-0.9)
--- NOTE | 2020-03-11 15:00 | NUR ---
Patient to room 303 from ED on cart. Patient A&Ox3. VSS 2L NC O2. IV CDI, fluids to gravity. Nurse oriented patient to location, bed and call light. Patient ambulated with standby assist to the bed and positioned for comfort. No further needs expressed from the patient. Call light within reach
[2020-03-11 15:57] VITALS: BP 153/56; PULSE 80; TEMP 97.8
[2020-03-11 17:29] VITALS: BP 152/57; PULSE 78; TEMP 100.1
[2020-03-11 17:30] VITALS: BP 151/64; PULSE 79
[2020-03-11 17:31] VITALS: BP 100/47; PULSE 80
--- NOTE | 2020-03-11 17:55 | NUR ---
Patient laying in bed, shivering under the covers. Nurse assessed the patient, temperature 100.1. Tylenol 650 mg given to the patient and will continue to monitor. A&Ox3. VSS 2L NC O2. Orthostatic BP's assessed and will notify the doctor of results. IV CDI, fluids infusing. Patient ambulated with standby assist to the bathroom. Patient updating family on cell phone. No further needs expressed from the patient. Call light within reach
[2020-03-11 19:01] VITALS: BP 138/68; PULSE 70; TEMP 99.2
--- NOTE | 2020-03-11 20:05 | NUR ---
Patient assessed at this time. Alert and oriented x 4, and able to make needs known. Denies having pain and discomfort at this time. Peripheral IV to right AC with fluids running per orders. Denies having SOB and dsypnea. On oxygen at 2 L/min via NC. LS CTA. Respirations even and unlabored. HRR. Capillary refill less than 3 seconds. Non-tenting skin turgor. BSAx4. Abdomen soft and non-tender. No edema. Voices no questions, needs, or concerns at this time. Resting in bed with call light within reach.
[2020-03-11 23:36] VITALS: BP 154/77; PULSE 70; TEMP 97.5
[2020-03-12] VITALS (7 sets, daily range): BP systolic 150–177; BP diastolic 66–75; PULSE 63–73; TEMP 97.4–98.2
--- NOTE | 2020-03-12 05:55 | NUR ---
Patient continues on oxygen at 2 L/min via NC. Denies having pain and discomfort at this time. Patient has been afebrile this shift. Voices no questions, needs, or concerns at this time. Resting in bed with call light within reach.
[2020-03-12 06:39] LABS: MEAN CELL VOLUME 96 fl (80.0-100.0); MEAN CORPUSCULAR HGB CONC 33 g/dl (33.0-37.0); MEAN PLATELET VOLUME 11.4 fl (7.4-10.4); PLATELET COUNT 125 K/mm3 (130-400); RED BLOOD COUNT 3.06 M/mm3 (4.10-5.30); REDCELL DISTRIBUTION WIDTH-CV 15.8 % (11.5-14.5)
[2020-03-12 06:41] LABS: HEMATOCRIT 29.3 % (37.0-47.0); HEMOGLOBIN 9.7 g/dl (12.5-16.0); MEAN CORPUSCULAR HEMOGLOBIN 32 pg (27.0-31.0)
[2020-03-12 06:48] LABS: CALCIUM 8.7 mg/dL (8.4-10.2); CREATININE, serum 1.91 (0.52-1.25); POTASSIUM 4.5 mmol/L (3.4-5.0)
--- NOTE | 2020-03-12 08:00 | NUR ---
Patient sitting up in the bed eating breakfast. A&Ox4. VSS 2L NC O2. No reported SOB. Denies pain and discomfort. No reported dizziness when getting up. Denies pain and discomfort. No further needs expressed from the patient. Call light within reach
[2020-03-12 08:35] LABS: BAND 13 % (0-10); LYMPHOCYTE 3 % (20.0-51.0); NEUTROPHILS 82 % (42.0-75.2)
[2020-03-12 08:36] LABS: PLATELET ESTIMATE DECREASED (NORMAL)
--- NOTE | 2020-03-12 17:33 | NUR ---
Patient had an uneventful day. Worked with PT/OT and tolerated well. A&Ox4. VSS 2L NC O2. No reported SOB. BP elevated, will monitor. Denies pain and discomfort. No complaints of dizziness. Call light within reach
--- NOTE | 2020-03-12 19:20 | NUR ---
Patient assessed at this time. Alert and oriented x 4, and able to make needs known. Denies having pain and discomfort. Peripheral INT to right AC flushed. Site without redness, warmth, swelling, and pain. Denies having SOB and dyspnea. On oxygen at 2 L/min via NC. LS CTA. Respirations even and unlabored. HRR. Capillary refill less than 3 seconds. Non-tenting skin turgor. BSAx4. Abdomen soft and non-tender. No edema. Assisted to bathroom. One person stand by assist. Denies dizziness. Gait steady. Voices no questions, needs, or conerns at this time. Resting in bed with call light within reach.
[2020-03-13 04:24] VITALS: BP 162/63; PULSE 71; TEMP 98.7
--- NOTE | 2020-03-13 05:29 | NUR ---
Patient has denied having pain and discomfort this shift. Continues on oxygen at 2 L/min via NC. Denies SOB and dyspnea. Denies dizziness with standing and ambulating. Voices no questions, needs, or concerns at this time. Resting in bed with call light within reach.
[2020-03-13 07:10] LABS: CALCIUM 8.5 mg/dL (8.4-10.2); CREATININE, serum 1.52 (0.52-1.25); MEAN CELL VOLUME 95 fl (80.0-100.0); MEAN CORPUSCULAR HGB CONC 34 g/dl (33.0-37.0); MEAN PLATELET VOLUME 11.6 fl (7.4-10.4); PLATELET COUNT 153 K/mm3 (130-400); POTASSIUM 4.2 mmol/L (3.4-5.0); RED BLOOD COUNT 2.94 M/mm3 (4.10-5.30); REDCELL DISTRIBUTION WIDTH-CV 15.6 % (11.5-14.5)
[2020-03-13 07:21] LABS: HEMATOCRIT 27.8 % (37.0-47.0); HEMOGLOBIN 9.5 g/dl (12.5-16.0); MEAN CORPUSCULAR HEMOGLOBIN 32 pg (27.0-31.0)
[2020-03-13 07:39] VITALS: BP 167/66; PULSE 66; TEMP 98.2
[2020-03-13 07:44] LABS: BAND 5 % (0-10); LYMPHOCYTE 2 % (20.0-51.0); NEUTROPHILS 88 % (42.0-75.2)
[2020-03-13 07:45] LABS: PLATELET ESTIMATE NORMAL (NORMAL)
--- NOTE | 2020-03-13 08:00 | NUR ---
Patient sitting up in bed eating breakfast. A&Ox4. VSS. IV CDI. Reports feeling better today. Denies pain and discomfort. No further needs expressed from the patient. Call light within reach
[2020-03-13] MEDS ORDERED: DECADRON6 MG PO (11:19)
[2020-03-13 11:25] VITALS: BP 142/65; PULSE 70; TEMP 97.8
--- NOTE | 2020-03-13 13:55 | NUR ---
Discharge paperwork reviewed with the patient. Patient verbalized an understanding to follow doctors orders and [facility] guideline. IV removed, tip intact, gauze and coban applied. No further needs expressed from the patient. Patient taken by wheelchair to ER entrance by nursing staff.
== END 2020-03-13 13:55 | disposition home or self-care (01) | DRG 177 ==
LOC: COL.ER 10:41 → PEDS 13:49 → COL.ER 14:05 → PEDS 14:05
PROVIDERS: Nurse Practitioner; Physician Assistant; ADMIT Student in an Organized Health Care Education/Training Program
PROC: XW033E5 Introduction of Remdesivir Anti-infective into Peripheral Vein, Percutaneous Approach, New Technology Group 5 (ICD-10-PCS; principal; 2020-03-12)
DX: U07.1 COVID-19 (principal); J96.01 Acute respiratory failure with hypoxia; J12.9 Viral pneumonia, unspecified; N17.9 Acute kidney failure, unspecified; N18.9 Chronic kidney disease, unspecified; I95.1 Orthostatic hypotension; E78.5 Hyperlipidemia, unspecified; E11.22 Type 2 diabetes mellitus with diabetic chronic kidney disease; F32.9 Major depressive disorder, single episode, unspecified; I25.10 Atherosclerotic heart disease of native coronary artery without angina pectoris; D64.9 Anemia, unspecified; E86.0 Dehydration; D89.89 Other specified disorders involving the immune mechanism, not elsewhere classified; Z90.710 Acquired absence of both cervix and uterus; Z98.51 Tubal ligation status; Z98.1 Arthrodesis status; Z79.82 Long term (current) use of aspirin
CPT/HCPCS: 99233-AI; J0696; J1100; J1644; J1815; J7030; J7050

== ENCOUNTER 2020-03-22 11:47 | Emergency (ER) | payer MEDICARE ==
[~2020-03-22] VITALS: Ht 160 cm; Wt 80.5 kg
[~2020-03-22 11:47] MED LIST changes: +DECADRON6 MG PO
[2020-03-22 11:52] VITALS: TEMP 97.7
[2020-03-22 15:20] LABS: MEAN CELL VOLUME 95 fl (80.0-100.0); MEAN CORPUSCULAR HEMOGLOBIN 32 pg (27.0-31.0); MEAN CORPUSCULAR HGB CONC 33 g/dl (33.0-37.0); MEAN PLATELET VOLUME 12.2 fl (7.4-10.4); PLATELET COUNT 209 K/mm3 (130-400); RED BLOOD COUNT 3.47 M/mm3 (4.10-5.30); REDCELL DISTRIBUTION WIDTH-CV 16.7 % (11.5-14.5)
[2020-03-22 15:23] LABS: ALBUMIN 3.4 gm/dL (3.5-5.0); BILIRUBIN,TOTAL 0.5 mg/dL (0.0-1.0); CALCIUM 9.5 mg/dL (8.4-10.2); CREATININE, serum 2.08 (0.52-1.25); MAGNESIUM 2.6 mg/dL (1.6-2.3); POTASSIUM 3.7 mmol/L (3.4-5.0); TOTAL PROTEIN 6.5 gm/dL (6.4-8.2)
[2020-03-22 15:25] LABS: HEMATOCRIT 32.9 % (37.0-47.0)
[2020-03-22 15:34] LABS: TROPONIN-I 0.016 ng/mL (0.000-0.035)
[2020-03-22 15:45] LABS: BAND 2 % (0-10); LYMPHOCYTE 10 % (20.0-51.0); NEUTROPHILS 85 % (42.0-75.2)
[2020-03-22 15:46] LABS: ANISOCYTOSIS 1+
[2020-03-22 15:47] LABS: SCHISTOCYTES 1+; SPHEROCYTE 1+
[2020-03-22 15:48] LABS: HELMET CELLS 1+; OVALOCYTES 1+
[2020-03-22 15:50] LABS: POIKILOCYTOSIS 2+
[2020-03-22 16:38] LABS: COLLECTION METHOD CLEAN CATCH
[2020-03-22 17:00] LABS: MUCOUS Present /lpf; PH 5 (5-8); URINE APPEARANCE Cloudy; URINE BACTERIA Rare /hpf; URINE BILIRUBIN Negative (NEGATIVE); URINE BLOOD Negative (NEGATIVE); URINE COLOR Yellow; URINE GLUCOSE Negative (NEGATIVE); URINE KETONE Negative (NEGATIVE); URINE LEUKOCYTE ESTERASE 3+ (NEGATIVE); URINE NITRATE Negative (NEGATIVE); URINE PROTEIN(semi-quant) Negative (NEGATIVE); URINE RBC 20-50 /hpf; URINE UROBILINOGEN Negative (NEGATIVE); URINE WBC >50 /hpf
[2020-03-22] MEDS ORDERED: CEPHALEXIN500 M1 PO (17:55)
[2020-03-22 18:12] VITALS: BP 168/68; PULSE 57
[2020-03-23 08:20] LABS: PATHOLOGY DIFF REVIEW OK
== END 2020-03-22 18:12 | disposition home or self-care (01) ==
LOC: COL.ER 11:47
PROVIDERS: Emergency Medicine
DX: U07.1 COVID-19 (principal); N17.9 Acute kidney failure, unspecified; N39.0 Urinary tract infection, site not specified; E86.0 Dehydration; R55 Syncope and collapse; E11.9 Type 2 diabetes mellitus without complications; Z88.8 Allergy status to other drugs, medicaments and biological substances; Z79.82 Long term (current) use of aspirin; Z79.52 Long term (current) use of systemic steroids; Z79.84 Long term (current) use of oral hypoglycemic drugs
CPT/HCPCS: J7030

== ENCOUNTER → 2020-05-06 | Outpatient (CLI) | payer MEDICARE ==
[~2020-05-06] MED LIST changes: +CEPHALEXIN500 M1 PO; +HYDRODIURIL50 MG PO; +NITRO-DUR0.4 MG/PAT TD; +PRAVACHOL80 MG PO; +PREDNISONE20 MG PO; +VANTIN 200200 MG/TAB PO; +VICTOZA6 MG/ML SQ; +ZOFRAN ODT4 MG PO
== END ==
LOC: COL.RAD
DX: Z87.440 Personal history of urinary (tract) infections (principal)

== ENCOUNTER 2020-08-02 17:53 | Emergency (ER) | payer MEDICARE ==
[~2020-08-02] VITALS: Ht 154.9 cm; Wt 60.9 kg
[~2020-08-02 17:53] MED LIST changes: -HYDRODIURIL50 MG PO; -NITRO-DUR0.4 MG/PAT TD; -PREDNISONE20 MG PO; -VANTIN 200200 MG/TAB PO; -VICTOZA6 MG/ML SQ; -ZOFRAN ODT4 MG PO
[2020-08-02 18:02] VITALS: TEMP 96.7
[2020-08-02 20:25] VITALS: BP 154/76; PULSE 61
== END 2020-08-02 20:25 | disposition home or self-care (01) ==
LOC: COL.ER 17:53
DX: S82.831A Other fracture of upper and lower end of right fibula, initial encounter for closed fracture (principal); R60.0 Localized edema; I10 Essential (primary) hypertension; E11.9 Type 2 diabetes mellitus without complications; G89.29 Other chronic pain; M54.9 Dorsalgia, unspecified; Z87.891 Personal history of nicotine dependence; Z79.4 Long term (current) use of insulin; Z79.891 Long term (current) use of opiate analgesic; W18.30XA Fall on same level, unspecified, initial encounter

== ENCOUNTER 2020-08-06 06:48 | Day surgery (SDC) | payer OTHER, MEDICARE ==
[~2020-08-06] VITALS: Ht 160 cm; Wt 78.0 kg
[2020-08-06] VITALS (10 sets, daily range): BP systolic 112–129; BP diastolic 50–59; PULSE 49–56; TEMP 97.2–97.6
[2020-08-06] MEDS ORDERED: GLUCOTROL10 MG PO (07:13)
[2020-08-06] MEDS ORDERED: NITRO-DUR0.4 MG/PAT TD (07:13)
[2020-08-06] MEDS ORDERED: VICTOZA6 MG/ML SQ (07:14)
--- NOTE | 2020-08-06 10:10 | NUR ---
Patient arrives to [facility] [place] [facility] for recovery. She is drowsy, but easily awakened for voice and oriented. She voices that she does not have pain. She can perceive light touch on the operative foot. Her toes are pink and warm. She can wiggle her toes. She denies nausea or other need. Monitoring is applied - VSS and WNL on room air. She requests and receives crackers and water to drink. Her is at the bedside.
--- NOTE | 2020-08-06 10:30 | NUR ---
VSS on room air. Patient is sleeping on and off. Denies pain, nausea, or need.
--- NOTE | 2020-08-06 12:00 | NUR ---
Patient is assisted to the restroom via wheelchair (as she is NWB on operative leg). After trying to void for a period of time, she is unsuccessful. She has some nausea and dizziness upon returning to bed. She is given Zofran and some crackers and orange juice.
--- NOTE | 2020-08-06 12:30 | NUR ---
Patient is resting comfortably. No longer nauseous. Dizziness has improved.
--- NOTE | 2020-08-06 13:00 | NUR ---
VSS and WNL on room air. Patient is assisted to the restroom via wheelchair, voids, and returns to room.
--- NOTE | 2020-08-06 13:45 | NUR ---
Patient has met discharge criteria. Discharge instructions are discussed. She denies any questions and verbalizes understanding. PIV is removed with catheter intact and hemostasis achieved. She is assisted to change to her clothing. She is escorted to the exit via wheelchair by staff. She has an episode of emesis in the hospital parking lot. Staff assists her with an emesis bag, napkins, and a fresh emesis bag for the ride home. She is discharged to home with ride in private vehicle, driven by her , at 1345.
== END 2020-08-06 13:45 | disposition home or self-care (01) ==
LOC: SDCO 06:48
DX: S93.431A Sprain of tibiofibular ligament of right ankle, initial encounter (principal); S82.841A Displaced bimalleolar fracture of right lower leg, initial encounter for closed fracture; I25.10 Atherosclerotic heart disease of native coronary artery without angina pectoris; E78.5 Hyperlipidemia, unspecified; K21.9 Gastro-esophageal reflux disease without esophagitis; G89.29 Other chronic pain; M19.90 Unspecified osteoarthritis, unspecified site; E11.42 Type 2 diabetes mellitus with diabetic polyneuropathy; G43.909 Migraine, unspecified, not intractable, without status migrainosus; M35.3 Polymyalgia rheumatica; I11.9 Hypertensive heart disease without heart failure; E78.00 Pure hypercholesterolemia, unspecified; Z79.82 Long term (current) use of aspirin; Z79.899 Other long term (current) drug therapy; Z79.84 Long term (current) use of oral hypoglycemic drugs; Z79.891 Long term (current) use of opiate analgesic; Z80.9 Family history of malignant neoplasm, unspecified
CPT/HCPCS: C1713; J1100; J1170; J2250; J2405; J2704; J2795; J3010; J7030

== ENCOUNTER 2020-09-04 10:59 | Emergency (ER) | payer MEDICARE, OTHER ==
[~2020-09-04] VITALS: Ht 160 cm; Wt 75.0 kg
[~2020-09-04 10:59] MED LIST changes: +NITRO-DUR0.4 MG/PAT TD; +VICTOZA6 MG/ML SQ
[2020-09-04 11:12] VITALS: TEMP 97.9
[2020-09-04 11:54] LABS: BASO % 0.6 % (0.0-2.0); EOS # 0.1 (0.0-0.7); EOS % 1.3 % (0-4.0); GRAN # 3.7 (1.4-6.5); GRAN % 68.6 % (42.2-75.2); MEAN CELL VOLUME 95 fl (80.0-100.0); MEAN CORPUSCULAR HGB CONC 32 g/dl (33.0-37.0); MEAN PLATELET VOLUME 10.7 fl (7.4-10.4); MONO # 0.6 (0.1-0.6); MONO % 10.1 % (1.7-9.3); PLATELET COUNT 172 K/mm3 (130-400); REDCELL DISTRIBUTION WIDTH-CV 15.3 % (11.5-14.5)
[2020-09-04 12:02] LABS: ALBUMIN 3.6 gm/dL (3.5-5.0); BILIRUBIN,TOTAL 0.2 mg/dL (0.0-1.0); CALCIUM 9.6 mg/dL (8.4-10.2); CREATININE, serum 2.48 (0.52-1.25); POTASSIUM 4.4 mmol/L (3.4-5.0); TOTAL PROTEIN 6.8 gm/dL (6.4-8.2)
[2020-09-04 12:17] LABS: HEMATOCRIT 26.7 % (37.0-47.0); HEMOGLOBIN 8.6 g/dl (12.5-16.0); MEAN CORPUSCULAR HEMOGLOBIN 31 pg (27.0-31.0)
[2020-09-04] MEDS ORDERED: PREDNISONE20 MG PO (12:24)
[2020-09-04 12:40] VITALS: BP 142/55; PULSE 58
== END 2020-09-04 12:50 | disposition home or self-care (01) ==
LOC: COL.ER 10:59
PROVIDERS: Family Medicine
DX: D64.9 Anemia, unspecified (principal); E11.22 Type 2 diabetes mellitus with diabetic chronic kidney disease; I12.9 Hypertensive chronic kidney disease with stage 1 through stage 4 chronic kidney disease, or unspecified chronic kidney disease; J32.0 Chronic maxillary sinusitis; N18.9 Chronic kidney disease, unspecified; Z88.8 Allergy status to other drugs, medicaments and biological substances; Z79.84 Long term (current) use of oral hypoglycemic drugs; Z79.899 Other long term (current) drug therapy

== ENCOUNTER → 2020-09-17 | Outpatient (CLI) | payer MEDICARE ==
[~2020-09-17] MED LIST changes: +HYDRODIURIL50 MG PO; +PREDNISONE20 MG PO; +VANTIN 200200 MG/TAB PO; +ZOFRAN ODT4 MG PO
== END ==
LOC: COL.LAB 11:27
DX: C50.912 Malignant neoplasm of unspecified site of left female breast (principal)

== ENCOUNTER → 2020-09-20 | Outpatient (CLI) | payer MEDICARE, OTHER ==
[2020-09-17 12:03] LABS: CREATININE, serum 2.09 (0.52-1.25)
== END ==
LOC: COL.RAD 08:40
PROVIDERS: Internal Medicine
DX: C50.912 Malignant neoplasm of unspecified site of left female breast (principal)
CPT/HCPCS: A9503

== ENCOUNTER 2020-11-10 07:30 | Outpatient (RCR) | payer MEDICARE, OTHER ==
[~2020-11-10] VITALS: Ht 160 cm; Wt 75.0 kg
[2020-11-10] VITALS (10 sets, daily range): BP systolic 135–182; BP diastolic 65–78; PULSE 54–68; TEMP 98.1–98.9
[~2020-11-10 07:30] MED LIST changes: -HYDRODIURIL50 MG PO; -VANTIN 200200 MG/TAB PO; -ZOFRAN ODT4 MG PO
[2020-11-10 09:06] LABS: MEAN CELL VOLUME 99 fl (80.0-100.0); MEAN CORPUSCULAR HGB CONC 32 g/dl (33.0-37.0); MEAN PLATELET VOLUME 11.4 fl (7.4-10.4); PLATELET COUNT 156 K/mm3 (130-400); RED BLOOD COUNT 2.55 M/mm3 (4.10-5.30); REDCELL DISTRIBUTION WIDTH-CV 15.9 % (11.5-14.5)
[2020-11-10 09:08] LABS: HEMATOCRIT 25.2 % (37.0-47.0); HEMOGLOBIN 8.1 g/dl (12.5-16.0); MEAN CORPUSCULAR HEMOGLOBIN 32 pg (27.0-31.0)
[2020-11-10 09:28] LABS: IRON,SERUM 62 ug/dL (35-150)
[2020-11-10 09:38] LABS: TOTAL IRON BINDING CAPACITY 247 ug/dL (265-497)
[2020-11-10 10:27] LABS: BASOPHIL 1 % (0-2); EOSINOPHIL 2 % (0-4); LYMPHOCYTE 21 % (20.0-51.0); NEUTROPHILS 69 % (42.0-75.2)
[2020-11-10 10:28] LABS: HYPOCHROMIA 1+
[2020-11-10 10:29] LABS: PLATELET ESTIMATE NORMAL (NORMAL)
--- NOTE | 2020-11-10 11:29 | NUR ---
PT has been tolerating her blood transfusion with no problem, she has been napping intermittently, lunch has been ordered. call light in reach. tm
[2020-11-10] MEDS ORDERED: HYDRODIURIL50 MG PO (12:49)
[2020-11-10] MEDS ORDERED: ZYLOPRIM 300MG300 MG PO (12:50)
--- NOTE | 2020-11-10 14:54 | NUR ---
Pt escorted to exit ambulatory at this time. Pt tolerated her blood transfusions without evidence of adverse or allergic reactions. She was amb to exit with steady gait, no apparent sob or difficulty with ambulation.
[2020-11-10 19:19] LABS: FOLATE (FOLIC ACID) >20.0 ng/mL (2.0-20.0); HAPTOGLOBIN 47 mg/dL (63-273)
== END 2020-11-10 14:56 | disposition home or self-care (01) ==
LOC: EUO 07:30
PROVIDERS: Internal Medicine
DX: C50.412 Malignant neoplasm of upper-outer quadrant of left female breast (principal)
CPT/HCPCS: J7050; P9016

== ENCOUNTER 2020-12-27 11:14 | Emergency (ER) | payer MEDICARE ==
[~2020-12-27] VITALS: Ht 160 cm; Wt 72.7 kg
[~2020-12-27 11:14] MED LIST changes: +HYDRODIURIL50 MG PO
[2020-12-27 11:29] VITALS: TEMP 98
[2020-12-27 12:00] LABS: COLLECTION METHOD CLEAN CATCH
[2020-12-27 12:08] LABS: MUCOUS Present /lpf; PH 5 (5-8); SQUAMOUS EPITHELIAL 0-2 /hpf; URINE APPEARANCE Hazy; URINE BACTERIA Many /hpf; URINE BILIRUBIN Negative (NEGATIVE); URINE BLOOD Negative (NEGATIVE); URINE COLOR Yellow; URINE GLUCOSE Negative (NEGATIVE); URINE KETONE Negative (NEGATIVE); URINE LEUKOCYTE ESTERASE Negative (NEGATIVE); URINE NITRATE Negative (NEGATIVE); URINE PROTEIN(semi-quant) Negative (NEGATIVE); URINE RBC 0-2 /hpf; URINE UROBILINOGEN Negative (NEGATIVE)
[2020-12-27 12:10] LABS: HEMOGLOBIN 11.2 g/dl (12.5-16.0); MEAN CELL VOLUME 91 fl (80.0-100.0); MEAN CORPUSCULAR HEMOGLOBIN 31 pg (27.0-31.0); MEAN CORPUSCULAR HGB CONC 34 g/dl (33.0-37.0); RED BLOOD COUNT 3.65 M/mm3 (4.10-5.30)
[2020-12-27 12:15] LABS: HEMATOCRIT 33.2 % (37.0-47.0); PLATELET COUNT 46 K/mm3 (130-400)
[2020-12-27 12:30] LABS: BILIRUBIN,TOTAL 0.5 mg/dL (0.2-1.2); CALCIUM 8.6 mg/dL (8.4-10.2); CREATININE, serum 2.26 mg/dL (0.57-1.11); TOTAL PROTEIN 5.3 gm/dL (6.2-8.1)
[2020-12-27 12:37] LABS: TROPONIN-I 0.028 ng/mL (0.00-0.033)
[2020-12-27 12:44] LABS: BAND 8 % (0-10); EOSINOPHIL 2 % (0-4); LYMPHOCYTE 50 % (20.0-51.0); METAMYELOCYTE 4 % (0-0); MYELOCYTE 2 % (0-0); NEUTROPHILS 10 % (42.0-75.2)
[2020-12-27 12:45] LABS: PLATELET ESTIMATE DECREASED (NORMAL)
[2020-12-27 12:46] LABS: OVALOCYTES 1+; SCHISTOCYTES 1+
[2020-12-27 13:50] LABS: CLOSTRIDIUM DIFF A/B NEG; CLOSTRIDIUM DIFF A/B INTERP No C.diff present
[2020-12-27] MEDS ORDERED: CEFTIN500 MG PO (14:54)
[2020-12-27] MEDS ORDERED: VANTIN 200200 MG/TAB PO (14:58)
[2020-12-27] MEDS ORDERED: ZOFRAN ODT4 MG PO (15:13)
[2020-12-27 15:40] VITALS: BP 130/61; PULSE 59
== END 2020-12-27 15:45 | disposition home or self-care (01) ==
LOC: COL.ER 11:14
PROVIDERS: Emergency Medicine
DX: I12.9 Hypertensive chronic kidney disease with stage 1 through stage 4 chronic kidney disease, or unspecified chronic kidney disease (principal); N18.9 Chronic kidney disease, unspecified; D63.1 Anemia in chronic kidney disease; E11.22 Type 2 diabetes mellitus with diabetic chronic kidney disease; I25.10 Atherosclerotic heart disease of native coronary artery without angina pectoris; E78.5 Hyperlipidemia, unspecified; Z88.8 Allergy status to other drugs, medicaments and biological substances; Z79.82 Long term (current) use of aspirin; Z79.899 Other long term (current) drug therapy; Z79.84 Long term (current) use of oral hypoglycemic drugs
CPT/HCPCS: J2405; J7030

== ENCOUNTER 2021-02-08 07:44 | Outpatient (RCR) | payer MEDICARE ==
[2021-02-08] VITALS (10 sets, daily range): BP systolic 144–173; BP diastolic 73–83; PULSE 71–75; TEMP 98.3–98.6
[~2021-02-08] VITALS: Ht 160 cm; Wt 75.4 kg
[~2021-02-08 07:44] MED LIST changes: +VANTIN 200200 MG/TAB PO; +ZOFRAN ODT4 MG PO
--- NOTE | 2021-02-08 14:00 | NUR ---
Pt tolerated blood transfusion without issue. Port DC'd, bandaid placed over port site. Pt ambulates out from dept with steady gait.
== END 2021-02-08 14:00 | disposition home or self-care (01) ==
LOC: EUO 07:44 → EDSTATUS 08:00 → EUO 08:00
DX: C50.412 Malignant neoplasm of upper-outer quadrant of left female breast (principal); D64.9 Anemia, unspecified
CPT/HCPCS: J1644; J7050; P9016

== ENCOUNTER 2021-03-11 09:42 | Day surgery (SDC) | payer MEDICARE ==
[~2021-03-11] VITALS: Ht 160 cm; Wt 75.2 kg
[2021-03-11 10:00] VITALS: BP 179/82; PULSE 72; TEMP 97.4
[2021-03-11 12:00] VITALS: BP 155/78; PULSE 72; TEMP 97.4
--- NOTE | 2021-03-11 12:00 | NUR ---
Back from EGD/Colonoscopy. Ambulated from cart to chair with steady gait and stand by assist. VSS. Declines eating but drinking water .
[2021-03-11 12:11] VITALS: BP 155/78; PULSE 72
== END 2021-03-11 12:59 | disposition home or self-care (01) ==
LOC: SDCO 09:42
DX: K29.31 Chronic superficial gastritis with bleeding (principal); K21.9 Gastro-esophageal reflux disease without esophagitis; K62.5 Hemorrhage of anus and rectum; K44.9 Diaphragmatic hernia without obstruction or gangrene; K59.00 Constipation, unspecified; D64.9 Anemia, unspecified; E78.5 Hyperlipidemia, unspecified; C50.919 Malignant neoplasm of unspecified site of unspecified female breast; E11.42 Type 2 diabetes mellitus with diabetic polyneuropathy; I10 Essential (primary) hypertension; I25.10 Atherosclerotic heart disease of native coronary artery without angina pectoris; N18.9 Chronic kidney disease, unspecified; M19.90 Unspecified osteoarthritis, unspecified site; D63.8 Anemia in other chronic diseases classified elsewhere; G89.29 Other chronic pain; F32.A Depression, unspecified; Z79.899 Other long term (current) drug therapy; Z86.16 Personal history of COVID-19; Z87.891 Personal history of nicotine dependence; Z79.891 Long term (current) use of opiate analgesic; Z79.82 Long term (current) use of aspirin; Z79.84 Long term (current) use of oral hypoglycemic drugs
CPT/HCPCS: J2704; J7030

== ENCOUNTER 2021-07-25 07:40 | Inpatient (IN) | payer MEDICARE ==
[2021-07-25] VITALS (701 sets, daily range): BP systolic 78–210; BP diastolic 60–119; PULSE 61–89; TEMP 97.7–98; O2SAT 83–100
[~2021-07-25] VITALS: Ht 160 cm; Wt 71.1 kg
[2021-07-25 08:12] LABS: BASO % 0.6 % (0.0-2.0); EOS # 0.1 K/mm3 (0.0-0.7); EOS % 1.9 % (0.0-4.0); GRAN # 3.9 K/mm3 (1.4-6.5); GRAN % 72.7 % (42.2-75.2); HEMATOCRIT 27.3 % (37.0-47.0); HEMOGLOBIN 9.1 g/dl (12.5-16.0); LYMPH # 0.7 K/mm3 (1.2-3.4); LYMPH % 13.9 % (20.0-51.0); MEAN CELL VOLUME 98 fl (80.0-100.0); MEAN CORPUSCULAR HEMOGLOBIN 33 pg (27-31); MEAN CORPUSCULAR HGB CONC 33 g/dl (33.0-37.0); MEAN PLATELET VOLUME 11.7 fl (7.4-10.4); MONO # 0.6 K/mm3 (0.1-0.6); MONO % 10.5 % (1.7-9.3); PLATELET COUNT 103 K/mm3 (130-400); RED BLOOD COUNT 2.79 M/mm3 (4.10-5.30); REDCELL DISTRIBUTION WIDTH-CV 15.2 % (11.5-14.5)
[2021-07-25 08:28] LABS: ALBUMIN 3.5 gm/dL (3.4-4.8); BILIRUBIN,TOTAL 0.5 mg/dL (0.2-1.2); CALCIUM 8.7 mg/dL (8.4-10.2); CREATININE, serum 2.21 mg/dL (0.57-1.11); POTASSIUM 3.8 mmol/L (3.5-4.5); TOTAL PROTEIN 6.1 gm/dL (6.2-8.1)
[2021-07-25 08:47] LABS: TSH w REFLEX 2.12 uIU/mL (0.350-4.940)
[2021-07-25 08:50] LABS: TROPONIN-I 0.06 ng/mL (0.00-0.033)
[2021-07-25 13:38] LABS: COLLECTION METHOD CATHETER
[2021-07-25 13:46] LABS: MUCOUS Present (NOT PRESENT); PH 5 (5-8); SQUAMOUS EPITHELIAL 0-2 /hpf (0-10); URINE APPEARANCE Clear (CLEAR/HAZY); URINE BACTERIA Rare /hpf (NONE SEEN); URINE BILIRUBIN Negative (NEGATIVE); URINE BLOOD 1+ (NEGATIVE); URINE COLOR Yellow (YELLOW); URINE GLUCOSE Negative (NEGATIVE); URINE KETONE Negative (NEGATIVE); URINE LEUKOCYTE ESTERASE Negative (NEGATIVE); URINE NITRATE Positive (NEGATIVE); URINE PROTEIN(semi-quant) 1+ (NEGATIVE); URINE UROBILINOGEN Negative (NEGATIVE)
[2021-07-26] VITALS (1339 sets, daily range): BP systolic 110–180; BP diastolic 62–89; PULSE 58–69; TEMP 97.5–98.5; O2SAT 81–100
[2021-07-26 05:58] LABS: BASO % 0.8 % (0.0-2.0); EOS # 0.1 K/mm3 (0.0-0.7); GRAN # 2.3 K/mm3 (1.4-6.5); GRAN % 63.7 % (42.2-75.2); LYMPH # 0.7 K/mm3 (1.2-3.4); MEAN CELL VOLUME 98 fl (80.0-100.0); MEAN CORPUSCULAR HGB CONC 34 g/dl (33.0-37.0); MEAN PLATELET VOLUME 12.3 fl (7.4-10.4); MONO # 0.5 K/mm3 (0.1-0.6); MONO % 14.2 % (1.7-9.3); PLATELET COUNT 95 K/mm3 (130-400); RED BLOOD COUNT 2.62 M/mm3 (4.10-5.30); REDCELL DISTRIBUTION WIDTH-CV 15.3 % (11.5-14.5)
[2021-07-26 06:11] LABS: CALCIUM 8.5 mg/dL (8.4-10.2); CREATININE, serum 2.49 mg/dL (0.57-1.11); POTASSIUM 3.5 mmol/L (3.5-4.5)
[2021-07-26 06:32] LABS: HEMATOCRIT 25.7 % (37.0-47.0); HEMOGLOBIN 8.6 g/dl (12.5-16.0); MEAN CORPUSCULAR HEMOGLOBIN 33 pg (27-31)
[2021-07-27] VITALS (646 sets, daily range): BP systolic 117–162; BP diastolic 51–79; PULSE 52–62; TEMP 97.6–98.7; O2SAT 90–100
[2021-07-27 05:23] LABS: BASO % 0.8 % (0.0-2.0); EOS # 0.1 K/mm3 (0.0-0.7); EOS % 2.5 % (0.0-4.0); GRAN # 2.3 K/mm3 (1.4-6.5); GRAN % 62.4 % (42.2-75.2); LYMPH # 0.7 K/mm3 (1.2-3.4); MEAN CELL VOLUME 99 fl (80.0-100.0); MEAN CORPUSCULAR HGB CONC 33 g/dl (33.0-37.0); MEAN PLATELET VOLUME 11.5 fl (7.4-10.4); MONO # 0.6 K/mm3 (0.1-0.6); MONO % 15.8 % (1.7-9.3); PLATELET COUNT 92 K/mm3 (130-400); RED BLOOD COUNT 2.59 M/mm3 (4.10-5.30); REDCELL DISTRIBUTION WIDTH-CV 15.3 % (11.5-14.5)
[2021-07-27 05:25] LABS: HEMATOCRIT 25.5 % (37.0-47.0); HEMOGLOBIN 8.4 g/dl (12.5-16.0); MEAN CORPUSCULAR HEMOGLOBIN 32 pg (27-31)
[2021-07-27 05:37] LABS: CREATININE, serum 2.67 mg/dL (0.57-1.11); POTASSIUM 3.8 mmol/L (3.5-4.5)
[2021-07-28] VITALS: BP 119/52; PULSE 52; TEMP 97.6
[2021-07-28 04:46] VITALS: BP 144/53; PULSE 54; TEMP 98
[2021-07-28 07:49] VITALS: BP 161/58; PULSE 57; TEMP 97.9
[2021-07-28 11:38] VITALS: BP 125/52; PULSE 52; TEMP 97.8
[2021-07-28 12:13] LABS: CALCIUM 8.5 mg/dL (8.4-10.2); CREATININE, serum 2.17 mg/dL (0.57-1.11); POTASSIUM 3.6 mmol/L (3.5-4.5)
[2021-07-28] MEDS ORDERED: LASIX 20MG TABL20 MG PO (12:53)
[2021-07-28] MEDS ORDERED: CARDIZEM CD 12120 MG PO (12:54)
== END 2021-07-28 15:30 | disposition home health service (06) | DRG 280 ==
LOC: COL.ER 07:40 → MEDICAL 09:43 → ICU 09:43 → EDBEDREQ 09:48 → MEDICAL 07-27 15:01
PROVIDERS: Emergency Medicine; ADMIT Student in an Organized Health Care Education/Training Program
PROC: 4A023N7 Measurement of Cardiac Sampling and Pressure, Left Heart, Percutaneous Approach (ICD-10-PCS; principal; 2021-07-26)
PROC: B2111ZZ Fluoroscopy of Multiple Coronary Arteries using Low Osmolar Contrast (ICD-10-PCS; 2021-07-26)
DX: I13.0 Hypertensive heart and chronic kidney disease with heart failure and stage 1 through stage 4 chronic kidney disease, or unspecified chronic kidney disease (principal); I50.31 Acute diastolic (congestive) heart failure; I21.A1 Myocardial infarction type 2; I16.1 Hypertensive emergency; N17.9 Acute kidney failure, unspecified; E78.5 Hyperlipidemia, unspecified; E11.22 Type 2 diabetes mellitus with diabetic chronic kidney disease; I25.10 Atherosclerotic heart disease of native coronary artery without angina pectoris; D64.9 Anemia, unspecified; F32.A Depression, unspecified; N18.30 Chronic kidney disease, stage 3 unspecified; I70.1 Atherosclerosis of renal artery; M35.3 Polymyalgia rheumatica; Z20.822 Contact with and (suspected) exposure to COVID-19; Z88.8 Allergy status to other drugs, medicaments and biological substances; Z87.891 Personal history of nicotine dependence; Z79.82 Long term (current) use of aspirin; Z79.52 Long term (current) use of systemic steroids
CPT/HCPCS: 99223-AI; 99233-AI; 99239; A4314; J1644; J1815; J1940; J2250; J2405; J3010; J3480; J7512

== ENCOUNTER 2021-10-17 08:42 | Inpatient (IN) | payer MEDICARE ==
[2021-10-17] VITALS (649 sets, daily range): BP systolic 125–160; BP diastolic 55–85; PULSE 52–78; TEMP 98; O2SAT 84–100
[~2021-10-17] VITALS: Ht 160 cm; Wt 74.4 kg
[~2021-10-17 08:42] MED LIST changes: +LASIX 20MG TABL20 MG PO
[2021-10-17 09:32] LABS: BASO % 0.4 % (0.0-2.0); EOS # 0.1 K/mm3 (0.0-0.7); EOS % 1.1 % (0.0-4.0); GRAN # 3.9 K/mm3 (1.4-6.5); LYMPH # 0.6 K/mm3 (1.2-3.4); LYMPH % 11.8 % (20.0-51.0); MEAN CELL VOLUME 98 fl (80.0-100.0); MEAN CORPUSCULAR HGB CONC 33 g/dl (33.0-37.0); MONO # 0.7 K/mm3 (0.1-0.6); MONO % 13.3 % (1.7-9.3); PLATELET COUNT 119 K/mm3 (130-400); RED BLOOD COUNT 2.41 M/mm3 (4.10-5.30); REDCELL DISTRIBUTION WIDTH-CV 15.1 % (11.5-14.5)
[2021-10-17 09:38] LABS: HEMATOCRIT 23.5 % (37.0-47.0); HEMOGLOBIN 7.8 g/dl (12.5-16.0); MEAN CORPUSCULAR HEMOGLOBIN 32 pg (27-31)
[2021-10-17 09:50] LABS: BILIRUBIN,TOTAL 0.4 mg/dL (0.2-1.2); CALCIUM 8.8 mg/dL (8.4-10.2); CREATININE, serum 2.57 mg/dL (0.57-1.11); MAGNESIUM 2.2 mg/dL (1.6-2.6); POTASSIUM 3.7 mmol/L (3.5-4.5); TOTAL PROTEIN 6.2 gm/dL (6.2-8.1)
[2021-10-17 09:58] LABS: TROPONIN-I 0.022 ng/mL (0.00-0.033)
--- NOTE | 2021-10-17 12:45 | NUR ---
PT ADMITTED FROM ED WITH BRADYCARDIA AND GONZALO. PT ARRIVED ON LEVO, HEPARIN, AND DOPAMINE. PT IS AXOX4. PT IS ON RA. PT SHOWING SB WITH 1ST DEGREE ON TELE. PT'S BP IN THE 150'S. LEVO TITRATED. RADHA CALLEJAS WITH NEPHROLOGY CALLED FOR CONSULT. 1310-PT HR IN THE 50'S. BP IN THE 120'S. SPOKE WITH REGARDING DOPMAINE AND LEVOPHED. WAS INSTRUCTED TO TITRATE LEVO FOR BP AND DOPAMINE FOR HR BELOW 50.
--- NOTE | 2021-10-17 18:28 | NUR ---
NOTIFIED OF PT'S BP IN THE 160'S AND HR IN THE 60'S. LEVOPHED STOPPED EARLIER. DOPAMINE DECREASED.
[2021-10-18] VITALS (1378 sets, daily range): BP systolic 133–167; BP diastolic 72–85; PULSE 63–70; TEMP 98–98.2; O2SAT 54–100
[2021-10-18 06:06] LABS: BASO % 0.3 % (0.0-2.0); EOS # 0.1 K/mm3 (0.0-0.7); EOS % 1.3 % (0.0-4.0); GRAN # 4.4 K/mm3 (1.4-6.5); GRAN % 71.4 % (42.2-75.2); LYMPH # 0.7 K/mm3 (1.2-3.4); LYMPH % 11.4 % (20.0-51.0); MEAN CELL VOLUME 96 fl (80.0-100.0); MEAN CORPUSCULAR HGB CONC 34 g/dl (33.0-37.0); MEAN PLATELET VOLUME 10.9 fl (7.4-10.4); MONO # 0.9 K/mm3 (0.1-0.6); MONO % 15.3 % (1.7-9.3); PLATELET COUNT 144 K/mm3 (130-400); RED BLOOD COUNT 2.63 M/mm3 (4.10-5.30); REDCELL DISTRIBUTION WIDTH-CV 14.6 % (11.5-14.5)
[2021-10-18 06:30] LABS: HEMATOCRIT 25.3 % (37.0-47.0); HEMOGLOBIN 8.5 g/dl (12.5-16.0); MEAN CORPUSCULAR HEMOGLOBIN 32 pg (27-31)
[2021-10-18 06:31] LABS: CREATININE, serum 2.51 mg/dL (0.57-1.11); MAGNESIUM 2.1 mg/dL (1.6-2.6); PHOSPHOROUS 3.8 mg/dL (2.3-4.7)
--- NOTE | 2021-10-18 07:00 | NUR ---
PT RESTING IN BED. PT ON DOPAMINE AND HEPARIN DRIP. VSS. PT HAS CALL LIGHT WITHIN REACH AND INSTURCTED TO CALL WITH ALL NEEDS.
--- NOTE | 2021-10-18 10:12 | NUR ---
HEPARIN AND DOPAMINE DRIPS STOPPED PER . WILL RESTART DOPAMINE IF HR DROPS BELOW 50.
--- NOTE | 2021-10-18 12:23 | NUR ---
hot worker met with patient and spouse to complete initial intake. Patient states she resides with spouse in their home in [place], [place] and plans to return upon discharge. Patient states that her primary care provider is Dr Panda and that her [employer] insurance covers the cost of her prescriptions and she has a copay that is managable. Patient states she is independent with her activities of daily living and does not utilize resources. Patient states she has a living will and is open to receiving information on durable power or semiconductor packages leak tester for health care. Worker offered completion with document.
--- NOTE | 2021-10-18 14:51 | NUR ---
Patient and spouse completed a durable power of senior trial attorney for health care. Worker placed copies on the medical record and gave original and copies to patient and spouse.
--- NOTE | 2021-10-18 22:21 | NUR ---
PATIENT RESTING COMFORTABLE ON COT, DENIES DISCOMFORT, PATIENT DOES EXPRESS NEED FOR COMMUNICATION ABOUT LOOP RECORDER AND PACE MAKER, AT THIS TIME PATIENT IS ADAMENT ABOUT GETTING A PACEMAKER NOT A LOOP RECORDER.
[2021-10-19] VITALS (955 sets, daily range): BP systolic 126–186; BP diastolic 52–123; PULSE 59–69; TEMP 97.7–98.9; O2SAT 81–100
[2021-10-19 06:13] LABS: BASO % 0.5 % (0.0-2.0); EOS # 0.1 K/mm3 (0.0-0.7); GRAN # 2.6 K/mm3 (1.4-6.5); GRAN % 64.5 % (42.2-75.2); LYMPH # 0.8 K/mm3 (1.2-3.4); MEAN CELL VOLUME 94 fl (80.0-100.0); MEAN CORPUSCULAR HGB CONC 35 g/dl (33.0-37.0); MEAN PLATELET VOLUME 11.3 fl (7.4-10.4); MONO # 0.6 K/mm3 (0.1-0.6); PLATELET COUNT 128 K/mm3 (130-400); REDCELL DISTRIBUTION WIDTH-CV 14.8 % (11.5-14.5)
[2021-10-19 06:16] LABS: HEMATOCRIT 24.5 % (37.0-47.0); HEMOGLOBIN 8.5 g/dl (12.5-16.0); MEAN CORPUSCULAR HEMOGLOBIN 33 pg (27-31)
[2021-10-19 06:31] LABS: ALBUMIN 2.8 gm/dL (3.4-4.8); CALCIUM 9.1 mg/dL (8.4-10.2); CREATININE, serum 2.14 mg/dL (0.57-1.11); MAGNESIUM 2.1 mg/dL (1.6-2.6); PHOSPHOROUS 3.8 mg/dL (2.3-4.7); POTASSIUM 3.9 mmol/L (3.5-4.5)
--- NOTE | 2021-10-19 09:25 | NUR ---
BEDSIDE REPORT RECEIVED FROM TANISHA ACUNA. PT IS RESTING IN BED AT THIS TIME. NO DRIPS INFUSING. VSS. PT HAS BEEN NPO SINCE MIDNIGHT. PT DENIES NEEDS AT THIS TIME, CALL LIGHT IN REACH.
[2021-10-20] VITALS (1384 sets, daily range): BP systolic 108–140; BP diastolic 52–92; PULSE 56–66; TEMP 97.7–98.5; O2SAT 85–100
[2021-10-20 05:07] LABS: BASO % 0.2 % (0.0-2.0); EOS # 0.1 K/mm3 (0.0-0.7); EOS % 1.8 % (0.0-4.0); GRAN # 3.4 K/mm3 (1.4-6.5); GRAN % 66.2 % (42.2-75.2); LYMPH % 19.7 % (20.0-51.0); MEAN CELL VOLUME 97 fl (80.0-100.0); MEAN CORPUSCULAR HGB CONC 33 g/dl (33.0-37.0); MEAN PLATELET VOLUME 10.8 fl (7.4-10.4); MONO # 0.6 K/mm3 (0.1-0.6); MONO % 11.7 % (1.7-9.3); PLATELET COUNT 140 K/mm3 (130-400); RED BLOOD COUNT 2.31 M/mm3 (4.10-5.30); REDCELL DISTRIBUTION WIDTH-CV 14.9 % (11.5-14.5)
[2021-10-20 05:17] LABS: HEMATOCRIT 22.3 % (37.0-47.0); HEMOGLOBIN 7.4 g/dl (12.5-16.0); MEAN CORPUSCULAR HEMOGLOBIN 32 pg (27-31)
[2021-10-20 05:23] LABS: ALBUMIN 2.8 gm/dL (3.4-4.8); CALCIUM 8.9 mg/dL (8.4-10.2); CREATININE, serum 2.09 mg/dL (0.57-1.11); MAGNESIUM 2.1 mg/dL (1.6-2.6); PHOSPHOROUS 3.4 mg/dL (2.3-4.7)
--- NOTE | 2021-10-20 07:38 | NUR ---
REPORT RECEIVED FROM TANISHA MAK. PT SITTING UP IN BED. CARDENE GTT RUNNING PER REPORT. VSS. PT DENIES ANY NEEDS AT THIS TIME.
--- NOTE | 2021-10-20 12:52 | NUR ---
PT CONSENT SIGNED FOR LOOP RECORDER AND PLACED. PT HAS MID CHEST SITE, CDI, COVERED WITH TAPE AND GAUZE. PT DENIES ANY OTHER NEEDS AT THIS TIME.
--- NOTE | 2021-10-20 22:02 | NUR ---
BEDSIDE SHIFT REPORT RECEIVED FROM TANISHA WILLETT. PT CURRENTLY RESTING IN BED. NO CURRENT C/O PAIN OR DISCOMFORT. SALINE LOCKED. VSS. NO ACUTE CHAGNES NOTED AT THIS TIME
[2021-10-21] VITALS (593 sets, daily range): BP systolic 144–172; BP diastolic 68–80; PULSE 62–67; TEMP 97.9–98; O2SAT 74–100
[2021-10-21 05:31] LABS: BASO % 0.4 % (0.0-2.0); EOS # 0.1 K/mm3 (0.0-0.7); GRAN # 2.9 K/mm3 (1.4-6.5); GRAN % 62.4 % (42.2-75.2); LYMPH # 1.1 K/mm3 (1.2-3.4); LYMPH % 23.2 % (20.0-51.0); MEAN CELL VOLUME 96 fl (80.0-100.0); MEAN CORPUSCULAR HGB CONC 33 g/dl (33.0-37.0); MEAN PLATELET VOLUME 9.5 fl (7.4-10.4); MONO # 0.5 K/mm3 (0.1-0.6); MONO % 11.6 % (1.7-9.3); PLATELET COUNT 139 K/mm3 (130-400); RED BLOOD COUNT 2.23 M/mm3 (4.10-5.30); REDCELL DISTRIBUTION WIDTH-CV 15.2 % (11.5-14.5)
[2021-10-21 05:39] LABS: HEMATOCRIT 21.4 % (37.0-47.0); HEMOGLOBIN 7.1 g/dl (12.5-16.0); MEAN CORPUSCULAR HEMOGLOBIN 32 pg (27-31)
[2021-10-21 05:46] LABS: CALCIUM 9.3 mg/dL (8.4-10.2); CREATININE, serum 1.82 mg/dL (0.57-1.11)
--- NOTE | 2021-10-21 07:00 | NUR ---
PT RESTING IN BED. PT'S VSS EXCEPT BP IN THE 160'S. PT HAS CALL LIGHT WITHIN REACH AND INSTRUCTED TO CALL WITH ALL NEEDS. PT WILL ORDER BREAKFAST NOW.
[2021-10-21] MEDS ORDERED: NORVASC 10MG10 MG PO (09:53)
[2021-10-21] MEDS ORDERED: COZAAR 25MG25 MG/TAB PO (09:55)
--- NOTE | 2021-10-21 11:37 | NUR ---
DISCHARGE INSTRUCTIONS DISCUSSED WITH PT. DISCUSSED NEW MEDS, DCD MEDS, AND FOLLOW UPS. ALL QUESTIONS ANSWERED. PORT DEACCESSED. PT WHEELED OUT FOR DISCHARGE.
== END 2021-10-21 11:38 | disposition home or self-care (01) | DRG 908 ==
LOC: COL.ER 08:42 → ICU 10:46
PROVIDERS: Emergency Medicine; ADMIT Internal Medicine
PROC: 3E033XZ Introduction of Vasopressor into Peripheral Vein, Percutaneous Approach (ICD-10-PCS; 2021-10-17)
PROC: 0JH602Z Insertion of Monitoring Device into Chest Subcutaneous Tissue and Fascia, Open Approach (ICD-10-PCS; principal; 2021-10-20)
DX: T44.7X1A Poisoning by beta-adrenoreceptor antagonists, accidental (unintentional), initial encounter (principal); N17.9 Acute kidney failure, unspecified; I13.0 Hypertensive heart and chronic kidney disease with heart failure and stage 1 through stage 4 chronic kidney disease, or unspecified chronic kidney disease; N18.4 Chronic kidney disease, stage 4 (severe); R57.9 Shock, unspecified; I50.32 Chronic diastolic (congestive) heart failure; I42.0 Dilated cardiomyopathy; R00.1 Bradycardia, unspecified; T46.1X1A Poisoning by calcium-channel blockers, accidental (unintentional), initial encounter; I95.9 Hypotension, unspecified; E11.22 Type 2 diabetes mellitus with diabetic chronic kidney disease; G89.29 Other chronic pain; E78.5 Hyperlipidemia, unspecified; M11.20 Other chondrocalcinosis, unspecified site; I25.10 Atherosclerotic heart disease of native coronary artery without angina pectoris; I27.20 Pulmonary hypertension, unspecified; I70.1 Atherosclerosis of renal artery; M19.90 Unspecified osteoarthritis, unspecified site; H40.9 Unspecified glaucoma; I08.3 Combined rheumatic disorders of mitral, aortic and tricuspid valves; I16.0 Hypertensive urgency; M35.3 Polymyalgia rheumatica; D63.8 Anemia in other chronic diseases classified elsewhere; E55.9 Vitamin D deficiency, unspecified; F32.A Depression, unspecified; M10.9 Gout, unspecified; Y92.89 Other specified places as the place of occurrence of the external cause; Z90.710 Acquired absence of both cervix and uterus; Z87.891 Personal history of nicotine dependence; Z88.8 Allergy status to other drugs, medicaments and biological substances; Z79.82 Long term (current) use of aspirin
CPT/HCPCS: C1764; J1250; J1265; J1644; J2405; J2543; J7030; J7050; J7060; J7120; J7512